=== PATIENT | female | born 1940 | race Caucasian/White ===

== ENCOUNTER 2019-08-04 16:55 | Inpatient (IN) ==
[2019-08-04] MEDS ORDERED: ACETAMINOPHEN 1,000 MG/100 ML VIAL IV STA (17:27)
[2019-08-04 17:51] LABS: Basophils # (auto) 0.04 K/uL (0-0.2); Basophils % (auto) 0.3 %; Eosinophils # (auto) 0.01 K/uL (0-0.5); Eosinophils % (auto) 0.1 %; Hematocrit (blood only) 31.8 % (37-47); Hemoglobin 10.3 g/dL (12.0-16.0); Immature Granulocytes # (auto) 0.03 K/uL (0.00-0.02); Immature Granulocytes % (auto) 0.3 %; Lymphocytes # (auto) 0.67 K/uL (1.2-3.4); Lymphocytes % (auto) 5.8 %; Mean Corpuscular Hemoglobin 28.9 pg (25-34); Mean Corpuscular Hgb Conc 32.4 g/dL (32-36); Mean Corpuscular Volume 89.3 fL (80-100); Mean Platelet Volume 10.7 fL (7.4-10.4); Monocytes # (auto) 0.25 K/uL (0.11-0.59); Monocytes % (auto) 2.2 %; Neutrophils # (auto) 10.56 K/uL (1.4-6.5); Neutrophils % (auto) 91.3 %; Platelet Count 212 K/uL (130-400); RDW Coefficient of Variation 17.3 % (11.5-14.5); RDW Standard Deviation 55.9 fL (36.4-46.3); Red Blood Count 3.56 M/uL (4.2-5.4); White Blood Count 11.56 K/uL (4.8-10.8)
[2019-08-04 18:01] LABS: INR 1.1 (0.9-1.1); Partial Thromboplastin Ratio 0.8; Partial Thromboplastin Time 23.1 Seconds (21.0-31.0); Prothrombin Time 11.9 Seconds (9.0-12.0)
[2019-08-04 18:04] LABS: iSTAT Creatinine 1.5 mg/dl (0.6-1.3); iSTAT Hemoglobin 10.9 g/dl (12.0-16.0); iSTAT Ionized Calcium 1.23 mmol/l (1.12-1.32); iSTAT Potassium 2.8 mmol/L (3.3-5.0)
[2019-08-04 18:09] LABS: Alanine Aminotransferase 13 U/L (12-78); Albumin Level 3.1 gm/dl (3.4-5.0); Aspartate Aminotransferase 24 U/L (15-37); BUN Creatinine Ratio 14.4 (10-20); Blood Urea Nitrogen 20 mg/dl (7-18); Calcium 9.1 mg/dl (8.5-10.1); Carbon Dioxide 24 mmol/L (21-32); Chloride 101 mmol/L (98-107); Est GFR (African American) 40.7; Est GFR (Non-African American) 35.1; Glucose 104 mg/dl (70-99); Lipase 177 U/L (73-393); Magnesium 1.8 mg/dl (1.8-2.4); Potassium 2.7 mmol/L (3.5-5.1); Sodium 139 mmol/L (136-145)
[2019-08-04 18:18] LABS: Albumin Globulin Ratio 0.9 (0.9-2); Alkaline Phosphatase 84 U/L (45-117); Creatine Kinase 242 U/L (26-192); Globulin 3.5 gm/dl (2.5-4.0); Phosphorus 2.4 mg/dl (2.5-4.9); Thyroid Stimulating Hormone 0.542 uIu/ml (0.300-4.500); Total Protein 6.6 gm/dl (6.4-8.2)
--- NOTE | 2019-08-04 18:26 | CT Scan Report ---
CT head/brain wo con CT DOSE: 930.81 mGy.cm HISTORY: Trauma Fall, pain, BUE/BLE ext weakness TECHNIQUE: Multiaxial CT images of the head were performed without the use of intravenous contrast. A dose lowering technique was utilized adhering to the principles of ALARA. Comparison: None. Findings: The paranasal sinuses and mastoid air cells are clear. The calvarium and skull base are int act. The ventricles and sulci are within normal limits. There is no mass, hematoma, midline shift, or acute infarct. Impression: No acute intracranial abnormality. ACT 112: Negative or not required by law. The above report was generated using voice recognition software. It may contain grammatical, syntax or spelling errors. Electronically signed by: Kenrick Colon M.D. 08/04/2019 6:24 PM
--- NOTE | 2019-08-04 18:28 | CT Scan Report ---
CT cervical spine wo con CT DOSE: HISTORY: Pain Fall, pain, BUE/BLE ext weakness TECHNIQUE: Multiaxial CT images of the cervical spine were performed and reformatted in the sagittal and coronal plane without the use of contrast. A dose lowering technique was utilized adhering to th e principles of ALARA. COMPARISON: None. FINDINGS: No fractures. No subluxation. Prevertebral soft tissues and the C1-C2 interval are intact. No pneumothorax. IMPRESSION: No fractures within the cervical spine. Generalized degenerative change. ACT 112: Negative or not required by law. The above report was generated using voice recognition software. It may contain grammatical, syntax or spelling errors. Electronically signed by: Kenrick Colon M.D. 08/04/2019 6:27 PM
--- NOTE | 2019-08-04 18:31 | CT Scan Report ---
CT chest wo con CT DOSE: 795.32 mGy.cm HISTORY: Trauma. Pain. Fall, pain, BUE/BLE ext weakness TECHNIQUE: Multiaxial CT images of the chest were performed without contrast. A dose lowering techni que was utilized adhering to the principles of ALARA. COMPARISON: None. FINDINGS: Prior median sternotomy. Mild cardiomegaly. Lungs are clear. No focal infiltrative process. Moderate degenerative change thoracic spine with no a cute process. IMPRESSION: No acute process. ACT 112: Negative or not required by law. The above report was generated using voice recognition software. It may contain grammatical, syntax or spelling errors. Electronically signed by: Kenrick Colon M.D. 08/04/2019 6:29 PM
[2019-08-04] MEDS: SODIUM CHLORIDE 0.9% 500 ML IV SCH (18:35)
--- NOTE | 2019-08-04 18:35 | CT Scan Report ---
CT abd pelvis wo con CT DOSE: HISTORY: Trauma Fall, pain, BUE/BLE ext weakness TECHNIQUE: Multiaxial CT images of the abdomen and pelvis were performed without contrast. A dose lo wering technique was utilized adhering to the principles of ALARA. COMPARISON STUDY: None. FINDINGS: Lung bases are clear. Liver spleen and pancreas are unremarkable. Kidneys are negative for hydronephrosis. There is moderate left renal atrophy. There is a 6 cm left r enal cyst. There is atherosclerotic change and ectasia of the abdominal aorta. The bowel pattern overall is nonobstructive. There is a small ventral hernia with evidence for a shor t segment of contain bowel. This is a nonobstructive finding. No acute bony abnormalities appreciated . IMPRESSION: No acute process. ACT 112: Negative or not required by law. The above report was generated using voice recognition software. It may contain grammatical, syntax or spelling errors. Electronically signed by: Kenrick Colon M.D. 08/04/2019 6:34 PM
[2019-08-04] MEDS ORDERED: DIPHTHERIA/TETANUS/PERTUSSIS 0.5 ML SYR/VIAL IM ONE (19:38)
[2019-08-04] MEDS ORDERED: POT PHOSPHATE MONOBASIC W/ SOD TAB PO STA (19:38)
[2019-08-04] MEDS ORDERED: POTASSIUM CHLORIDE 20 MEQ TABCR PO STA (19:38)
[2019-08-04] MEDS ORDERED: XYLOCAINE 1%/SOD BICARB 20 ML VIAL INFIL ONE (19:38)
[2019-08-04 19:40] LABS: Appearance Urine Cloudy (Clear); Bacteria Urine Automated 4+ (Negative); Blood Urine 1+ (Negative); Color Urine Dark Yellow; Epithelial Cell Urine Auto >30 /lpf (0-5); Glucose Urine UA Negative (Negative); Ketones Urine 1+ (Negative); Leukocyte Esterase Urine Trace (Negative); Nitrite Urine Negative (Negative); Protein Urine 2+ (Negative); RBC Urine Automated 0-4 /hpf (0-4); Specific Gravity Urine 1.022 (1.000-1.030); Urobilinogen Urine Negative (Negative)
[2019-08-04 19:42] LABS: Bilirubin Urine Negative (Negative); Ictotest Urine Negative (Negative)
--- NOTE | 2019-08-04 19:45 | Emergency Department Note ---
Impression & Plan Urinary tract infection, Hypokalemia, Hypomagnesemia, Hypophosphatemia, Generalized muscle weakness, Laceration of nose, Unwitnessed fall, Adult failure to thrive ED Provider Note NAME: NANETTE OBANDO AGE: 79 SEX: F ARRIVES VIA: Ambulance INFORMANT: Patient, ED PROVIDER(S): Blayne Norman MD CHIEF COMPLAINT: Fall, weakness PLAN: Disposition: Admit MEDICAL DECISION MAKING: The patient is a pleasant 79-year-old woman with a past medical history of CKD, aortic regurgitation who presents emergency department after an unwitnessed fall in her home setting of being seen at located in emergency department yesterday for decreased appetite and oral intake with progressive worsening confusion over the past 6 months. Per patient's daughter she was diagnosed with low potassium at her ED visit a [facility] yesterday and was discharged after receiving repletion. The patient's daughter the patient has had progressive confusion o miri the past 6 months becoming more significant over the past several weeks where she is refusing to eat. Additionally she has not followed up with her primary care doctor and is not taking her medications as prescribed. She reports that her mother lives by herself in an apartment complex and does not receive any nursing or personal care. On arrival the patient is uncomfortable no acute distress, afebrile stable vital signs. The patient exhibits generalized weakness of all 4 extremities, 3/6 strength x4 extremities. She does have a 2.6 cm linear laceration to the bridge of her nose. She has mild tenderness of the midline over lower C-spine bony crepitus. She has no focal neuro deficits. EKG demonstrates nonspecific T wave abnormality without overt ST elevation. CT imaging of the patient's head, C-spine, chest, abdomen pelvis were negative for acute traumatic findings or acute process otherwise. WBC 11.5, nonspecific. H/H 10.3/31.8 without recent values for comparison but sim ilar to prior range of values. Platelets within normal limits. Chemistry without metabolic acidosis. Creatinine 1.4 in setting of the patient's history of CKD. Potassium is 2.7 and magnesium is 1.8 with repletion provided. Phosphorus 2.4 with additional repletion provided. LFTs unremarkable. CPK 240. Troponin 0.03, within normal limits. TSH within normal limits. UA pending. Laceration repaired per Dr. Kinsey's procedure note. the patient's generalized weakness where she is unable to ambulate, which is suspected to be related to her potassium deficiency and dehydration with overall failure to thrive, reasonable to admit the patient for further management. Patient is agreeable wi th this. Patient's presentation evaluation was discussed with the patient's daughter, Alexandra Bullard ([phone]), who was also agreeable with the plan for admission. [facility] for [facility]. Of note, the patient's UA subsequently did result and is suspicious for UTI. Will initiate treatment with ceftriaxone. Triage Nursing notes reviewed and agree them. Additional history obtained from daughter, Alexandra Bullard ([phone]) Prior medical records reviewed Vital Signs: reviewed and remarkable for hypertension. Differential diagnosis: Fracture, dislocation, contusion, intra-abdominal, pneumothorax, intrathoracic, intracranial, neurologic, compartment syndrome, rhabdomyolysis, as well as other pathologies. ER treatment provided: See below. Diagnostics interpreted by me: ECG: Sinus rhythm, 73 bpm, LVH, significant baseline artifact present. Nonspecific T wave abnormality, no overt ST elevation, TC 449, QRS 76. Cardiac Monitoring: An order for continuous cardiac monitoring was placed and demonstrated on his rhythm, 73 bpm, no ectopy. Laboratory studies: See below Imaging studies: See below Consultation(s): [facility] the patient for admission. HPI: The patient is a pleasant 79-year-old woman with a past medical history of CKD, aortic regurgitation who presents emergency department after an unwitnessed fall in her home setting of being seen at located in emergency department yesterday for decreased appetite and oral intake with progressive worsening confusion over the past 6 months. Per patient's daughter she was diagnosed with low potassium at her ED visit a [facility] yesterday and was discharged after receiving repletion. The patient's daughter the patient has had progressive confusion over the past 6 months becoming more significant over the past several weeks where she is refusing to eat. Additionally she has not followed up with her primary care doctor and is not taking her medications as prescribed. She reports that her mother lives by herself in an apartment complex and does not receive any nursing or personal care. ROS: See above HPI for pertinent positives & negatives. A total of 10 systems reviewed and were otherwise negative. PAST MEDICAL HISTORY:See Below PAST SURGICAL HISTORY:See Below FAMILY HISTORY:See Below SOCIAL HISTORY:See Below HOME MEDICATIONS:See Below ALLERGIES:See Below VITALS:See Below PHYSICAL EXAMINATION: GENERAL: Awake, alert, fatigued-appearing, in no distress HENT: Normocephalic. 2.6cm linear laceration to bridge of nose. Mild left infraorbital ecchymosis. Oropharynx with dry mucous membranes and otherwise unremarkable. EYES: Normal conjunctiva. Sclera non-icteric. EOMI. No nystamgus. PEARRL. NECK: Supple. No nuchal rigidity. FROM. No JVD. Mild lower cervical midline tenderness without irasema crepitus. RESPIRATORY: Clear to auscultation. CARDIAC: Regular rate, normal rhythm. Extremities warm and well perfused. Pulses equal. ABDOMEN: Soft, non-distended. No tenderness to palpation. No rebound or guarding. No masses. RECTAL: Deferred. MUSCULOSKELETAL: Chest examination reveals no tenderness. The back is symmetrical on inspection without obvious abnormality. No TL spine midline tenderness or step-offs. There is no CVA tenderness to palpation. No joint edema. LOWER EXTREMITIES: Calves are equal size bilaterally and non-tender. No edema. No discoloration. NEURO: Normal sensorium. No focal sensory or motor deficits noted. However, generalized extremities weakness with 3/6 strength and SILT x 4 extremities. DTRs wnl. No clonus. SKIN: No rash or jaundice noted. Blayne Norman MD Past Med/Surg History Medical History CKD (chronic kidney disease) Hyperlipidemia Hypertension Social History Preferred Language: Estonian Communication Ability: Effective Career Education Teacher Required: No Beliefs That Will Affect Care: None Current Living Situation: Alone Other Information That Helps Us Care for You: No Feels Safe at Home: Yes Safety Concerns: Feels Safe At This Time Smoking Status: Former smoker Smoking End Date: "couple years ago" ; Hx Alcohol Use: No Hx Substance Use: No Allergies Allergies Allergy/AdvReac Type Severity Reaction Status Date / Time No Known Allergies Allergy Unknown Verified 08/04/19 20:09 Home Meds Home Medications Medication Instructions Recorded Confirmed amlodipine 2.5 mg PO DAILY 08/04/19 08/04/19 aspirin [Aspirin Low Dose] 81 mg PO DAILY 08/04/19 08/04/19 atorvastatin 40 mg PO DAILY 08/04/19 08/04/19 calcitriol 0.25 mcg PO 3XWK 08/04/19 08/04/19 cholecalciferol (vitamin D3) 25 mcg PO DAILY 08/04/19 08/04/19 Results & Data (ED) Vital Signs Vital Signs - 24 hr 08/04/19 17:05 08/04/19 17:25 08/04/19 17:30 Temperature 36.7 C Temperature Source Oral Pulse Rate 77 79 Pulse Rate from SpO2 Sensor Respiratory Rate 20 20 Blood Pressure 154/85 H Blood Pressure Mean 108 Pulse Oximetry 98 Oxygen Delivery Method Room Air Room Air Sepsis Recent Fever Within 48 Hours No Sepsis New/Unexplained Change in Mental Status No Sepsis Action Taken by Nursing No Action Required 08/04/19 18:00 08/04/19 18:32 08/04/19 19:00 Temperature Temperature Source Pulse Rate 74 68 73 Pulse Rate from SpO2 Sensor 75 69 72 Respiratory Rate 15 21 15 Blood Pressure 165/80 H 170/80 H Blood Pressure Mean 119 122 Pulse Oximetry 98 98 98 Oxygen Delivery Method Room Air Room Air Sepsis Recent Fever Within 48 Hours Sepsis New/Unexplained Change in Mental Status Sepsis Action Taken by Nursing 08/04/19 20:00 08/04/19 20:30 08/04/19 21:00 Temperature Temperature Source Pulse Rate 75 78 76 Pulse Rate from SpO2 Sensor 75 77 76 Respiratory Rate 24 26 H 23 Blood Pressure 190/90 H 177/82 H 173/73 H Blood Pressure Mean 158 88 89 Pulse Oximetry 98 98 99 Oxygen Delivery Method Room Air Room Air Sepsis Recent Fever Within 48 Hours Sepsis New/Unexplained Change in Mental Status Sepsis Action Taken by Nursing 08/04/19 21:30 Temperature Temperature Source Pulse Rate 76 Pulse Rate from SpO2 Sensor 77 Respiratory Rate 26 H Blood Pressure 175/83 H Blood Pressure Mean 126 Pulse Oximetry 92 Oxygen Delivery Method Room Air Sepsis Recent Fever Within 48 Hours Sepsis New/Unexplained Change in Mental Status Sepsis Action Taken by Nursing Laboratory Data Attestation: I reviewed the patient's lab results. Result diagrams: 08/04/19 17:40 08/04/19 17:40 Lab Results 08/04/19 08/04/19 08/04/19 Range/Units 17:40 17:40 17:40 WBC 11.56 H (4.8-10.8) K/uL RBC 3.56 L (4.2-5.4) M/uL Hgb 10.3 L (12.0-16.0) g/dL POC Hgb (12.0-16.0) g/dl Hct 31.8 L (37-47) % POC Hct (37-47) % MCV 89.3 (80-100) fL MCH 28.9 (25-34) pg MCHC 32.4 (32-36) g/dL RDW Std Deviation 55.9 H (36.4-46.3) fL RDW Coeff of Santiago 17.3 H (11.5-14.5) % Plt Count 212 (130-400) K/uL MPV 10.7 H (7.4-10.4) fL Immature Gran % (Auto) 0.3 % Neut % (Auto) 91.3 % Lymph % (Auto) 5.8 % [place] % (Auto) 2.2 % Eos % (Auto) 0.1 % Baso % (Auto) 0.3 % Immature Gran # (Auto) 0.03 H (0.00-0.02) K/uL Neut # (Auto) 10.56 H (1.4-6.5) K/uL Lymph # (Auto) 0.67 L (1.2-3.4) K/uL [place] # (Auto) 0.25 (0.11-0.59) K/uL Eos # (Auto) 0.01 (0-0.5) K/uL Baso # (Auto) 0.04 (0-0.2) K/uL PT 11.9 (9.0-12.0) Seconds INR 1.1 (0.9-1.1) APTT 23.1 (21.0-31.0) Seconds PTT Ratio 0.8 POC Sodium (135-144) mmol/L Sodium 139 (136-145) mmol/L POC Potassium (3.3-5.0) mmol/L Potassium 2.7 L (3.5-5.1) mmol/L POC Chloride (101-112) mmol/L Chloride 101 (98-107) mmol/L Carbon Dioxide 24 (21-32) mmol/L POC Total CO2 (24-31) mEq/l Anion Gap 14.0 H (3-11) POC Anion Gap (16-25) mmol/L POC BUN (7-18) mg/dl BUN 20 H (7-18) mg/dl Creatinine 1.40 H (0.6-1.2) mg/dl POC Creatinine (0.6-1.3) mg/dl Est Cr Clr Drug Dosing Not Reportable Est GFR ( Amer) 40.7 Est GFR (Non-Af Amer) 35.1 BUN/Creatinine Ratio 14.4 (10-20) Glucose 104 H (70-99) mg/dl POC Glucose (other) (70-99) mg/dl Lactate (0.4-2.0) mmol/L Calcium 9.1 (8.5-10.1) mg/dl POC Ioniz Calcium Rebecca (1.12-1.32) mmol/l Phosphorus 2.4 L (2.5-4.9) mg/dl Magnesium 1.8 (1.8-2.4) mg/dl Total Bilirubin 1.0 (0.2-1) mg/dl AST 24 (15-37) U/L ALT 13 (12-78) U/L Alkaline Phosphatase 84 (45-117) U/L Total Creatine Kinase 242 H (26-192) U/L Troponin I 0.030 (0-0.045) ng/ml Total Protein 6.6 (6.4-8.2) gm/dl Albumin 3.1 L (3.4-5.0) gm/dl Globulin 3.5 (2.5-4.0) gm/dl Albumin/Globulin Ratio 0.9 (0.9-2) Lipase 177 (73-393) U/L TSH 0.542 (0.300-4.500) uIu/ml Urine Color Urine Appearance (Clear) Urine pH (4.5-7.5) Ur Specific Pimento (1.000-1.030) Urine Protein (Negative) Urine Glucose (UA) (Negative) Urine Ketones (Negative) Urine Blood (Negative) Urine Nitrite (Negative) Urine Bilirubin (Negative) Urine Urobilinogen (Negative) Ur Leukocyte Esterase (Negative) Urine WBC (Auto) (0-5) /hpf Urine RBC (Auto) (0-4) /hpf U Hyaline Cast (Auto) (0-5) /lpf U Epithel Cells (Auto) (0-5) /lpf Urine Bacteria (Auto) (Negative) Ur Renal Epithelial Cell 08/04/19 08/04/19 08/04/19 Range/Units 17:46 19:26 21:02 WBC (4.8-10.8) K/uL RBC (4.2-5.4) M/uL Hgb (12.0-16.0) g/dL POC Hgb 10.9 L (12.0-16.0) g/dl Hct (37-47) % POC Hct 32 L (37-47) % MCV (80-100) fL MCH (25-34) pg MCHC (32-36) g/dL RDW Std Deviation (36.4-46.3) fL RDW Coeff of Santiago (11.5-14.5) % Plt Count (130-400) K/uL MPV (7.4-10.4) fL Immature Gran % (Auto) % Neut % (Auto) % Lymph % (Auto) % [place] % (Auto) % Eos % (Auto) % Baso % (Auto) % Immature Gran # (Auto) (0.00-0.02) K/uL Neut # (Auto) (1.4-6.5) K/uL Lymph # (Auto) (1.2-3.4) K/uL [place] # (Auto) (0.11-0.59) K/uL Eos # (Auto) (0-0.5) K/uL Baso # (Auto) (0-0.2) K/uL PT (9.0-12.0) Seconds INR (0.9-1.1) APTT (21.0-31.0) Seconds PTT Ratio POC Sodium 137 (135-144) mmol/L Sodium (136-145) mmol/L POC Potassium 2.8 L (3.3-5.0) mmol/L Potassium (3.5-5.1) mmol/L POC Chloride 98 L (101-112) mmol/L Chloride (98-107) mmol/L Carbon Dioxide (21-32) mmol/L POC Total CO2 25 (24-31) mEq/l Anion Gap (3-11) POC Anion Gap 18.0 (16-25) mmol/L POC BUN 19 H (7-18) mg/dl BUN (7-18) mg/dl Creatinine (0.6-1.2) mg/dl POC Creatinine 1.5 H (0.6-1.3) mg/dl Est Cr Clr Drug Dosing Est GFR ( Amer) Est GFR (Non-Af Amer) BUN/Creatinine Ratio (10-20) Glucose (70-99) mg/dl POC Glucose (other) 110 H (70-99) mg/dl Lactate 1.0 (0.4-2.0) mmol/L Calcium (8.5-10.1) mg/dl POC Ioniz Calcium Rebecca 1.23 (1.12-1.32) mmol/l Phosphorus (2.5-4.9) mg/dl Magnesium (1.8-2.4) mg/dl Total Bilirubin (0.2-1) mg/dl AST (15-37) U/L ALT (12-78) U/L Alkaline Phosphatase (45-117) U/L Total Creatine Kinase (26-192) U/L Troponin I (0-0.045) ng/ml Total Protein (6.4-8.2) gm/dl Albumin (3.4-5.0) gm/dl Globulin (2.5-4.0) gm/dl Albumin/Globulin Ratio (0.9-2) Lipase (73-393) U/L TSH (0.300-4.500) uIu/ml Urine Color Dark Yellow Urine Appearance Cloudy A (Clear) Urine pH 5.0 (4.5-7.5) Ur Specific Pimento 1.022 (1.000-1.030) Urine Protein 2+ H (Negative) Urine Glucose (UA) Negative (Negative) Urine Ketones 1+ H (Negative) Urine Blood 1+ H (Negative) Urine Nitrite Negative (Negative) Urine Bilirubin Negative (Negative) Urine Urobilinogen Negative (Negative) Ur Leukocyte Esterase Trace H (Negative) Urine WBC (Auto) 10-30 H (0-5) /hpf Urine RBC (Auto) 0-4 (0-4) /hpf U Hyaline Cast (Auto) 10-30 H (0-5) /lpf U Epithel Cells (Auto) >30 H (0-5) /lpf Urine Bacteria (Auto) 4+ H (Negative) Ur Renal Epithelial Cell Not Reportable Administered Medications Sodium Chloride (Nss 1000ml) 1,000 mls @ 80 mls/hr IV .[id number] [facility] Stop: 09/03/19 22:56 Last Admin: 08/04/19 23:39 Dose: 80 mls/hr Documented by: [id number] Potassium Phosphate 15 mmol/ (Sodium Chloride) 255 mls @ 88 mls/hr IV ONE ONE Stop: 08/05/19 02:23 Last Admin: 08/05/19 00:06 Dose: 88 mls/hr Documented by: [id number] Discontinued Medications Diphtheria/Pertussis/Tetanus Vacc (Adacel) 0.5 ml IM .ONCE ONE Stop: 08/04/19 19:39 Last Admin: 08/04/19 20:45 Dose: 0.5 ml Documented by: [id number] Acetaminophen (Ofirmev) 1,000 mg in 100 mls @ 400 mls/hr IV NOW STA Stop: 08/04/19 17:41 Last Admin: 08/04/19 18:36 Dose: Not Given Documented by: [id number] Sodium Chloride (Nss) 500 mls @ 125 mls/hr IV .Q4H [facility] Stop: 09/03/19 17:29 Last Admin: 08/04/19 18:35 Dose: 125 mls/hr Documented by: [id number] Potassium Chloride (K Luis / Wtr) 10 meq in 100 mls @ 100 mls/hr IV Q1H [facility] Stop: 08/04/19 21:44 Last Infusion: 08/04/19 22:38 Dose: 0 mls/hr Documented by: [id number] Admin: 08/04/19 21:42 Dose: 100 mls/hr Documented by: [id number] Infusion: 08/04/19 21:32 Dose: 100 mls/hr Documented by: [id number] Admin: 08/04/19 20:32 Dose: 100 mls/hr Documented by: [id number] Magnesium Sulfate/Dextrose (Magnesium Sulfate / D5w) 1 gm in 100 mls @ 100 mls/hr IV Q1H PATRICA Stop: 08/04/19 21:44 Last Infusion: 08/05/19 00:47 Dose: 0 mls/hr Documented by: [id number] Admin: 08/04/19 23:33 Dose: 100 mls/hr Documented by: [id number] Infusion: 08/04/19 23:26 Dose: 100 mls/hr Documented by: [id number] Admin: 08/04/19 22:26 Dose: 100 mls/hr Documented by: [id number] Ceftriaxone Sodium (Rocephin) 2,000 mg in 70 mls @ 140 mls/hr IV NOW STA Stop: 08/04/19 21:09 Last Infusion: 08/04/19 22:20 Dose: 0 mls/hr Documented by: [id number] Admin: 08/04/19 21:42 Dose: 140 mls/hr Documented by: [id number] Lidocaine HCl (Buffered Lidocaine 1%) 20 ml INFIL NOW ONE Stop: 08/04/19 19:39 Last Admin: 08/04/19 20:31 Dose: 20 ml Documented by: [id number] Potassium Chloride (Klor-Con M20) 40 meq PO NOW STA Stop: 08/04/19 19:39 Last Admin: 08/04/19 20:44 Dose: Not Given Documented by: [id number] Potassium Chloride (Klor-Con Pwd) 40 meq PO NOW STA Stop: 08/04/19 20:12 Last Admin: 08/04/19 20:42 Dose: Not Given Documented by: [id number] Potassium Phosphate (Phospha 250 Neutral 155-852-130 Mg) 2 tab PO NOW STA Stop: 08/04/19 19:39 Last Admin: 08/04/19 20:45 Dose: Not Given Documented by: [id number] Imaging Data Radiologist's Impression: CT head/brain wo con CT DOSE: 930.81 mGy.cm HISTORY: Trauma Fall, pain, BUE/BLE ext weakness TECHNIQUE: Multiaxial CT images of the head were performed without the use of intravenous contrast. A dose lowering technique was utilized adhering to the principles of ALARA. Comparison: None. Findings: The paranasal sinuses and mastoid air cells are clear. The calvarium and skull base are intact. The ventricles and sulci are within normal limits. There is no mass, hematoma, midline shift, or acute infarct. Impression: No acute intracranial abnormality. -- CT cervical spine wo con CT DOSE: HISTORY: Pain Fall, pain, BUE/BLE ext weakness TECHNIQUE: Multiaxial CT images of the cervical spine were performed and reformatted in the sagittal and coronal plane without the use of contrast. A dose lowering technique was utilized adhering to the principles of ALARA. COMPARISON: None. FINDINGS: No fractures. No subluxation. Prevertebral soft tissues and the C1-C2 interval are intact. No pneumothorax. IMPRESSION: No fractures within the cervical spine. Generalized degenerative change. -- CT chest wo con CT DOSE: 795.32 mGy.cm HISTORY: Trauma. Pain. Fall, pain, BUE/BLE ext weakness TECHNIQUE: Multiaxial CT images of the chest were performed without contrast. A dose lowering technique was utilized adhering to the principles of ALARA. COMPARISON: None. FINDINGS: Prior median sternotomy. Mild cardiomegaly. Lungs are clear. No focal infiltrative process. Moderate degenerative change thoracic spine with no acute process. IMPRESSION: No acute process. -- CT abd pelvis wo con CT DOSE: HISTORY: Trauma Fall, pain, BUE/BLE ext weakness TECHNIQUE: Multiaxial CT images of the abdomen and pelvis were performed without contrast. A dose lowering technique was utilized adhering to the principles of ALARA. COMPARISON STUDY: None. FINDINGS: Lung bases are clear. Liver spleen and pancreas are unremarkable. Kidneys are negative for hydronephrosis. There is moderate left renal atrophy. There is a 6 cm left renal cyst. There is atherosclerotic change and ectasia of the abdominal aorta. The bowel pattern overall is nonobstructive. There is a small ventral hernia with evidence for a short segment of contain bowel. This is a nonobstructive fi nding. No acute bony abnormalities appreciated. IMPRESSION: No acute process. Blood Pressure Blood Pressure Findings: Elevated blood pressure Blood Pressure Disposition: further management by hospitalist Discharge Plan Visit Data *Final* Discharge Date/Time: 08/04/19 22:37 Chief Complaint: Fall Stated Complaint: FALL, R HIP & LEG PAIN, LAC TO NOSE ED Provider: Blayne Norman Discharge Problem: Urinary tract infection, Hypokalemia, Hypomagnesemia, Hypophosphatemia, Generalized muscle weakness, Laceration of nose, Unwitnessed fall, Adult failure to thrive Patient Disposition: Admitted As Inpatient Discharge Instructions Interventions: ED Discharge Assessment Last Done: 08/04/19 22:37 Discharge Problem: Urinary tract infection Qualifiers: Urinary tract infection type: acute cystitis Hematuria presence: with hematuria Qualified Code(s): N30.01 - Acute cystitis with hematuria Laceration of nose Qualifiers: Encounter type: initial encounter Qualified Code(s): S01.21XA - Laceration without foreign body of nose, initial encounter
[2019-08-04] MEDS ORDERED: POTASSIUM CHLORIDE PWD 20 MEQ PACK PO STA (20:11)
--- NOTE | 2019-08-04 20:31 | Emergency Department Note ---
ED Visit Note I performed this laceration repair: Location: bridge of nose Total length: 2.6 cm Complexity: linear Verbal consent was obtained after the risks and benefits were explained, including but not limited to bleeding, scarring, infection, pain, and bone/joint/nerve damage. At this time, the risks of the procedure are less than the risks of NOT performing the procedure. A time out was taken and the correct patient and site identified. The target area was anesthetized with 2 ml of 1% lidocaine. Copious irrigation was performed using 500cc NS. Sterile field set. The wound was explored for foreign bodies and none found. Examination revealed no injury to deep structures such as tendons, bone, or significant blood vessels. Debridement was not performed. The wound edges were approximated using 3, 5-0 simple interrupted nylon sutures. Hemostasis and excellent approximation was achieved. Antibacterial ointment and a sterile dressing applied. Detailed wound care instructions and signs and symptoms of infection reviewed with the patient. No complications and the patient tolerated the procedure well. .
[2019-08-04] MEDS: POTASSIUM CHLORIDE / WTR 10 MEQ/100 ML PLCT IV SCH ×2 (20:32→21:42)
[2019-08-04] MEDS ORDERED: cefTRIAXone SODIUM 2,000 MG/70 ML BAG IV STA (20:40)
[2019-08-04] MEDS: MAGNESIUM SULFATE / D5W 1 GM/100 ML BAG IV SCH ×2 (22:26→23:33)
[2019-08-04] MEDS ORDERED: ACETAMINOPHEN 325 MG TAB PO PRN (22:57)
[2019-08-04] MEDS ORDERED: NITROGLYCERIN SL 0.4 MG/TAB TAB SL PRN (22:57)
[2019-08-04] MEDS ORDERED: SODIUM CHLORIDE 0.9% 1000ML 1,000 ML IV SCH (22:57)
[2019-08-04] MEDS ORDERED: POTASSIUM PHOS 3 MMOL/1 ML INFUSION IV STA (22:57)
[2019-08-04] MEDS ORDERED: POTASSIUM PHOSPHATE 15 MMOL in SODIUM CHLORIDE 0.9% 250 ML IV ONE (23:30)
--- NOTE | 2019-08-05 01:37 | History and Physical Report ---
DATE OF ADMISSION: 08/04/2019 CHIEF COMPLAINT: Fall. HISTORY OF PRESENT ILLNESS: This is an 79-year-old female with past medical history significant for hyperlipidemia, hypertension, history of mitral regurgitation, CAD status post CABG, history of diverticulitis of colon, GERD, vitamin D deficiency, chronic kidney disease stage IV, history of TIAs, who lives alone, walks with a cane was brought in because of fall. The patient lives alone but daughter lives close by. The patient was taken to [facility] yesterday because the patient was not getting up from the bed for the last 4 days, not eating and drinking much, feeling weak, somewhat confused. As per daughter, the potassium was 3 and she was in ER for 3 hours and got discharged. Today, the patient says when she was trying to get up from the bed and going to the dining room, she slipped on the carpet and fell face down. She then passed out. Then she was able to call her daughter and she was brought in here. She was having Bruise to Left orbit and injury of the bridge of the nose, which was sutured in the ER. Currently alert and awake, oriented to name and place, does not know the dates. Denies any headache. Denies any blurred visions, no earache. Denies any sore throat. Denies cough. No fever, no chills. No chest pain, no shortness of breath. Denies any nausea, no vomiting, no abdominal pain. Denies any diarrhea or constipation. Normal bowel and bladder movements. No rash anywhere. Hemodynamics are stable. ALLERGIES: No known drug allergies. PAST MEDICAL HISTORY: As mentioned above. PAST SURGICAL HISTORY: CABG, colonoscopy, dilatation and curettage, exploratory laparotomy and removal of infected mesh with incisional hernia repair, sigmoid colectomy, appendectomy, tonsillectomy, adenoidectomy, repair of the ventral hernia, total hysterectomy. MEDICATIONS: The patient is on Lipitor 40 mg p.o. daily; calcitriol 0.25 mcg p.o. Sunday, Sunday, and Sunday; amlodipine 2.5 mg p.o. daily; vitamin D 1000 units p.o. daily; aspirin 81 mg p.o. daily. FAMILY HISTORY: Significant for mother has arthritis and eye problems; father had stroke and hypertension; brother has cholesterol. SOCIAL HISTORY: , lives alone. Former smoker, quit in 2010, prior to that smoked 0.25 packs a day. No alcohol use, no drug use. REVIEW OF SYSTEMS: As per HPI. Rest of review of systems negative. PHYSICAL EXAMINATION: GENERAL: The patient is old and frail, not in acute distress. VITAL SIGNS: Temperature 36.7, pulse 68, respiratory rate 21, blood pressure 165/80, oxygen 98% on room air. HEENT: Some bruise on the left orbit region, sutures in the nasal bridge. Pupils equal, round, reactive to light. NECK: Supple, no neck masses. CARDIOVASCULAR: S1, S2 heard, regular rate and rhythm. Systolic murmur in mitral area. RESPIRATORY SYSTEM: Normal AP diameter. No accessory muscle use. No wheezing, no crackles. ABDOMEN: Soft, bowel sounds present, nontender. No distention. CENTRAL NERVOUS SYSTEM: Cranial nerves II-XII grossly intact. Alert and oriented x2. Obeys simple commands. Moves extremities. EXTREMITIES: No edema, no erythema. LABORATORY DATA: WBC 11.5, hemoglobin 10.3, hematocrit 31.8, and platelets 212. PT 11.9, INR 1.1, APTT 23.1. Sodium 139, potassium 2.7, chloride 101, CO2 of 24, BUN 20, creatinine 1.4, serum glucose 104. Lactate 1, calcium 9.1, phosphorus 2.4, magnesium 1.8, total bilirubin 1, AST 24, ALT 13, alkaline phosphatase 84. Troponin I of 0.03. Lipase 177. TSH 0.5. Urinalysis, trace leukocyte esterase, +4 bacteria. IMAGING DATA: CT of the abdomen and pelvis, no acute process. Cervical spine CT, no fractures within the cervical spine, generalized degenerative change. Chest CT, no acute process. CT of the head, no acute intracranial abnormality. EKG: Normal sinus rhythm with a rate of 73. Nonspecific T-wave abnormality in the lateral leads. ASSESSMENT AND PLAN: This is an 79-year-old female who presents with fall. 1. Fall which seems to be mechanical, fell on his face. The patient lost consciousness for a period of time and has an injury to her nasal bridge and bruise in the left orbital region. Sutured the nasal bridge in the ER. As per daughter, the patient was not getting up from bed for the last 4 days and was somewhat confused, not eating, drinking. Went to the [facility] and found to have potassium of 3 and got discharged. Her potassium is 2.7 today could be contributing to fall.. We will also check orthostatics and possible urinary tract infection contributing. We will observe in med/surg tele. Gentle fluids. PT and OT. Social service to help with discharge planning. 2. Hypokalemia. We will replace. 3. Hypophosphatemia, replace and follow the repeat labs. 4. Possible urinary tract infection, Rocephin. Follow the cultures. 5. Chronic kidney disease stage IV. Baseline creatinine around 2, currently creatinine of 1.4. Getting fluids. Follow the labs. 6. History of coronary artery disease status post coronary artery bypass graft, on aspirin and statin. 7. Hypertension, on amlodipine. 8. History of mitral regurgitation. Monitor for any volume overload. 9. Hyperlipidemia, on statin. 10. History of transient ischemic attacks, on aspirin and statin. 11. Deep vein thrombosis prophylaxis, sequential compression devices. DISPOSITION: Observe in med/surg tele. PT and OT prior to discharge. Social service to help with discharge planning. Code status: Full code as per my discussion with the daughter. STEPHEN
[2019-08-05 06:34] LABS: Basophils # (auto) 0.03 K/uL (0-0.2); Basophils % (auto) 0.3 %; Eosinophils # (auto) 0.02 K/uL (0-0.5); Eosinophils % (auto) 0.2 %; Hematocrit (blood only) 31.4 % (37-47); Hemoglobin 10.1 g/dL (12.0-16.0); Immature Granulocytes # (auto) 0.02 K/uL (0.00-0.02); Immature Granulocytes % (auto) 0.2 %; Lymphocytes # (auto) 0.86 K/uL (1.2-3.4); Lymphocytes % (auto) 9.8 %; Mean Corpuscular Hemoglobin 28.5 pg (25-34); Mean Corpuscular Hgb Conc 32.2 g/dL (32-36); Mean Corpuscular Volume 88.5 fL (80-100); Mean Platelet Volume 10.5 fL (7.4-10.4); Monocytes # (auto) 0.33 K/uL (0.11-0.59); Monocytes % (auto) 3.7 %; Neutrophils # (auto) 7.56 K/uL (1.4-6.5); Neutrophils % (auto) 85.8 %; Platelet Count 180 K/uL (130-400); RDW Coefficient of Variation 17.3 % (11.5-14.5); RDW Standard Deviation 55.1 fL (36.4-46.3); Red Blood Count 3.55 M/uL (4.2-5.4); White Blood Count 8.82 K/uL (4.8-10.8)
[2019-08-05] MEDS: ONDANSETRON INJ 2 MG/ML 2 ML VIAL IV PRN ×2 (06:37→23:41)
[2019-08-05 07:08] LABS: BUN Creatinine Ratio 16.6 (10-20); Calcium 8.7 mg/dl (8.5-10.1); Creatinine Clr Calc Pharmacy 27.3 ml/min; Est GFR (African American) 48.1; Est GFR (Non-African American) 41.5; Magnesium 2.6 mg/dl (1.8-2.4); Phosphorus 3.3 mg/dl (2.5-4.9); Potassium 3.2 mmol/L (3.5-5.1)
--- NOTE | 2019-08-05 08:20 | Electrocardiogram Report ---
Test Reason : Blood Pressure : / mmHG Vent. Rate : 073 BPM Atrial Rate : 073 BPM P-R Int : 142 ms QRS Dur : 076 ms QT Int : 408 ms P-R-T Axes : 000 -13 060 degrees QTc Int : 449 ms Poor data quality, interpretation may be adversely affected Normal sinus rhythm Voltage criteria for left ventricular hypertrophy Abnormal ECG When compared with ECG of 10-MAR-2011 06:41, Premature ventricular complexes are no longer Present Otherwise no significant change Confirmed by Mina Contreras ([id number]) on 08/05/2019 8:20:24 AM Referred By: REFERRED SELF Confirmed By:Mina Contreras
[2019-08-05] MEDS ORDERED: AMLODIPINE BESYLATE 5 MG TAB PO SCH (09:00)
[2019-08-05] MEDS ORDERED: ATORVASTATIN 40 MG TAB PO SCH (09:00)
[2019-08-05] MEDS ORDERED: ASPIRIN 81 MG ECTAB PO SCH (09:00)
[2019-08-05] MEDS ORDERED: CHOLECALCIFEROL 1,000 UNITS 25 MCG TAB PO SCH (09:00)
--- NOTE | 2019-08-05 10:27 | Hospitalist Progress Note ---
Date of Service August 05, 2019 Assessment & Plan (1) Fall: Ambulatory Dysfunction Motor Deficits of the hands This is an 79-year-old female who presents with fall. -fell on her face with loss of consciousness. The patient lost consciousness for a period of time and has an injury to her nasal bridge and bruise in the left orbital region. ER provider sutured the nasal bridge in the ER. -08/05/2019 updates: Patient seen and examined at bedside this AM with nurse and occupational therapist. Patient on commode and made a bowel movement. Stool is loose and somewhat dark brown in color. Medical doctor asked for stool to be sent fo fecal occult blood test. Patient apparently has difficulty with using her hands to hold onto cup with either hand. She appears to not really move her fingers on both hands from a flexed position and therefor not gripping the cup. Occupational therapist considers this unusual because at baseline that patient reported to be able to hold objects at baseline such as walking with cane as per her daughter Aleah ([phone]) by telephone prior to this hospital presentation. In addition, patient needed 2 person assist to return to the bed. When she is positioned upright on bed without back supports, she appears to sway. Patient was assisted to be on the bedrest. Nurse also requesting formal speech and swallow evaluation for patient. oral hygiene q shift, continue aspiration precautions. At this time, because of hand issues will further workup the neck MRI to rule out cervical cord compression. In addition to obtain brain MRI to rule out head injury but admission head CT without contrast did not find evidence for stroke. keep NPO until speech and swallow evaluation completed. Nutrition/Hydration as D5 1/2 normal. will have neurology consult to assist with evaluating abnormal hand movements. will have orthopedic consult to help with ruling out cervical radiculopathy or cervical cord compression History of coronary artery disease status post coronary artery bypass graft History of mitral regurgitation Hyperlipidemia History of transient ischemic attacks -no acute stroke on admission CT head without contrast -can continue aspirin and statin when not NPO, awaiting speech and swallow service -follow MRI results Dehydration, poor appetite Hypokalemia -As per daughter, the patient was not getting up from bed for the last 4 days and was somewhat confused, not eating, drinking. Prior to this admission for fall with injury, patient was seen at [facility] Emergency room and found to have potassium of 3 and got discharged -admission serum potassium of 2.7 on admission -replacing potassium and so far serum potassium 3.2, continue to target serum potassium of 3.5 to 4 -formal speech and swallow evaluation pending, IV hydration as above -aspiration precautions, oral hygiene q nursing shift Hypophosphatemia -admission serum phosphorous 2.8 -repleted to 3.3 by 08/05/2019 Acute Kidney Injury on Chronic Kidney Disease Stage IV (however based on recent labs perhaps the CKD is stage III) -admission labs of creatinine of 2, downtrending with IV hydration Possible urinary tract infection, -on ceftriaxone, continue Hypertension -non adherent to amlodipine medications at home, will need to titrate blood pressure medication while in the hospital after MRI scans completed Deep vein thrombosis prophylaxis, sequential compression devices Full Code daughter Aleah ([phone]) Admission and Anticipated Discharge Date Admission Date: August 04, 2019 Subjective Patient seen and examined at bedside this AM with nurse and occupational therapist. Patient on commode and made a bowel movement. Stool is loose and somewhat dark brown in color. Medical doctor asked for stool to be sent fo fecal occult blood test Patient apparently has difficulty with using her hands to hold onto cup with either hand. She appears to not really move her fingers on both hands from a flexed position and therefor not gripping the cup. Occupational therapist considers this unusual because at baseline that patient reported to be able to hold objects at baseline such as walking with cane as per her daughter Aleah ([phone]) by telephone prior to this hospital presentation. In addition, patient needed 2 person assist to return to the bed. When she is positioned upright on bed without back supports, she appears to sway. Patient was assisted to be on the bedrest Nurse also requesting formal speech and swallow evaluation for patient. oral hygiene q shift, continue aspiration precautions at this time, because of hand issues will further workup the neck MRI to rule out cervical cord compression. In addition to obtain brain MRI to rule out head injury but admission head CT without contrast did not find evidence for stroke. keep NPO until speech and swallow evaluation completed. Nutrition/Hydration as D5 1/2 normal. will have neurology consult to assist with evaluating abnormal hand movements. will have orthopedic consult to help with ruling out cervical radiculopathy or cervical cord compression Patient denies acute pain. no shortness of breath. breathing on room air. no vomiting. no fever Review of Systems Review of Systems: All systems reviewed & are unremarkable except as noted in Subjective Physical Exam Eyes: PERRL, conjunctivae normal, anicteric sclerae EOM intact bilaterally ENMT: external ear and nose normal, oropharynx normal (left eye ecchymosis) Neck: normal visual inspection Respiratory: normal respiratory effort Cardiovascular: Rate/Rhythm: regular rate Gastrointestinal (Abdomen): normal bowel sounds, soft, nontender, no hepatosplenomegaly Musculoskeletal: Head/Neck/Chest: normocephalic and head atraumatic Neurologic: PERRL, EOMI, accommodation nl, no face palsy, no dysarthria Motor/Sensory: + abnormal movement Psychiatric: Orientation: alert and cooperative Patient apparently has difficulty with using her hands to hold onto cup with either hand. She appears to not really move her fingers on both hands from a flexed position and therefor not gripping the cup. Occupational therapist considers this unusual because at baseline that patient reported to be able to hold objects at baseline prior to this hospital presentation. In addition, patient needed 2 person assist to return to the bed. When she is positioned upright on bed without back supports, she appears to sway. Patient was assisted to be on the bedrest Results & Data Results & Data ([facility]) Vital Signs (Past 12 Hours) Vital Signs Temp Pulse Pulse Resp BP BP Pulse Ox 08/05/19 07:25 77 08/05/19 07:08 36.5 C 75 18 194/82 H 97 08/05/19 03:19 36.4 C L 87 18 174/77 H 96 08/05/19 01:50 79 08/05/19 01:47 79 08/04/19 23:10 36.4 C L 78 16 171/81 H 97 08/04/19 22:30 73 18 173/90 H 96
[2019-08-05] MEDS: D5W AND 1/2NSS 1,000 ML IV SCH (12:08)
--- NOTE | 2019-08-05 13:16 | Communication Note ---
Date of Service: Aug 05 2019 I just received a consultation from Dr. Stone regarding Mrs. [place] who is 79 years old and for the past several days has had poor caloric intake has not got ten out of bed and presented to [facility] yesterday with low serum potassium at 3.0. She apparently had this replaced returned home but had a mechanical fall related perhaps to tripping but perhaps due to muscle weakness, and suffered a nasal laceration requiring sutures as well as trauma to the orbital area with ecchymosis. She apparently was unconscious for a short interval but awakened and was able to contact her daughter and was brought to the hospital and had a thorough evaluation including CT scan of the head and cervical spine the latter showing no fractures or dislocations and the former showing some leukoencephalopathy and volume loss. Her potassium however was even lower at 2.7 compared to what it had been previously. Her potassium is being replaced and it has risen to 3.2 Dr. Stone is concerned because the patient continues to be very weak requiring 2 person assist and has stiffness of her hands and weakness with handgrip that would not certainly permit her to ambulate independently as she was apparently capable of doing using a walker prior to the onset of current illness Concern has been expressed about a spinal cord injury or central nervous system injury and orthopedics has been consulted along with neurology At this point I have recommended MR imaging of the brain and cervical spine as if these are negative then I think most of the weakness would be explainable on the basis of her illness and hypokalemia and another day of observation may be sufficient along with monitoring her potassium to see if she recovers back to baseline in 24 to 48 hours In that case neurologic assessment would not be necessary Alternatively if we do see evidence for a central cervical cord trauma or hemorrhage or anything hemmorhagic in the central nervous system of posttraumatic type then referral to a tertiary care center for neurosurgical dimension or orthopedic decompression of the cervical spine will be required I will await results of imaging will review the chart and determine whether neurologic assessment is really essential today, possibly could be deferred until tomorrow or may not be necessary at all Mikhail Echeverria MD
[2019-08-05] MEDS ORDERED: GADOBUTROL 65ML VIAL IV PRN (13:43)
[2019-08-05] MEDS ORDERED: LABETALOL HCL IV 5 MG/ML 20ML IV PRN (13:48)
--- NOTE | 2019-08-05 13:58 | Magnetic Resonance Report ---
MRI OF THE BRAIN WITHOUT AND WITH IV CONTRAST CLINICAL HISTORY: Head trauma, weakness, confusion. COMPARISON STUDY: CT scan the head dated 08/04/2019 TECHNIQUE: MRI of the brain was performed from the vertex to the skull base utilizing various T1 and T2 weighted sequences. Following the IV administration of 5.5 mL of Gadavist contrast, additional enh anced images were obtained. FINDINGS: Sagittal T1, axial diffusion, proton density and T2 weighted axial, coronal FLAIR, and pre and post a xial T1-weighted images were acquired. These were supplemented with post gadolinium coronal T1 weight ed images. No intra or extra-axial mass lesions are visualized. Axial diffusion-weighted images reveal no evidence of acute or subacute infarction. There is no evidence of ventricular dilatation. Proton density T2-weighted and FLAIR images reveal moderate scattered foci of increased T2 signal wit hin the white matter, likely on a small vessel basis. There are no abnormal flow voids. There is no evidence of pathologic enhancement. IMPRESSION: 1. No acute intracranial findings 2. No MRI evidence of acute intracranial hemorrhage 3. No evidence of acute or subacute infarction 4. No evidence of intracranial mass 5. Foci of increased T2 signal within the white matter, likely on a small vessel ischemic basis ACT 112: Negative or not required by law. Electronically signed by: Edgar Mosley M.D. 08/05/2019 1:57 PM
--- NOTE | 2019-08-05 14:04 | Magnetic Resonance Report ---
MR cervical spine wo/w con CLINICAL HISTORY: 79 years-old Female presenting with status post fall on 08/04/2019, now with weakness and confusion, negative CT cervical spine. TECHNIQUE: Multisequence, multiplanar MR imaging of the cervical spine was performed before and after the administration of intravenous contrast. IV contrast: 5.5 mL of Gadavist. COMPARISON: CT from 08/04/2019. FINDINGS: Localizer images: Unremarkable. Straightening of the cervical spine from C3 to C6 with slightly exaggerated lordotic curvature at C7. Trace retrolisthesis of C5 on C6 may be present versus asymmetric intervertebral disc height loss po steriorly relative to anteriorly. Vertebral bodies otherwise maintain normal height, alignment, and b one marrow signal intensity. Intervertebral disc desiccation without the cervical spine with the exce ption of C5-6, which contains fluid. There is also mild prevertebral edema evident. Suspected disrupt ion of the anterior longitudinal ligament at the level of C5-6 (series 4 image 7). Extensive edema is also noted in the nuchal ligament and interspinous ligament from the level of the skull base to C5. In retrospect a nondisplaced fracture of the spinous process of C5 is present. Severe spinal canal narrowing at the level of C5 and C6, where there is no demonstrable residual CSF signal at these levels. This is due to disc osteophyte complexes and ligamentum flavum thickening as well as the alignment. No evidence of an epidural collection, however, mild hyperemia of the perivert ebral and epidural fat at the level of C6. Increased spinal cord signal intensity at the level of C4- 5. Degenerative change elsewhere in the cervical spine results in multilevel neural foraminal narrowing, mild right and moderate left at C3-4, mild bilateral at C4-5, severe bilateral at C5-6, and mild santa ateral at C6-7. Craniocervical junction normal. Remainder of the visualized soft tissues within normal limits. IMPRESSION: 1. Findings suggest a hyperextension injury pattern with disruption of the anterior longitudinal lig ament at C5-6 and both prevertebral and nuchal ligament/interspinous ligament edema. In retrospect a nondisplaced fracture of the spinous process of C5 is present. 2. Findings highly concerning for spinal cord edema, which could be due to acute on chronic spinal c ord impingement at C5 and C6 versus, less likely, traumatic spinal cord injury. Neurosurgery/orthoped ic consultation recommended. 3. Multilevel neural foraminal narrowing. The report will be called/faxed according to standard departmental protocol. ACT 112: Negative or not required by law. Electronically signed by: Wesley Lindquist M.D. 08/05/2019 2:03 PM
[2019-08-05] MEDS ORDERED: ACETAMINOPHEN 1,000 MG/100 ML VIAL IV PRN (14:36)
[2019-08-05] MEDS ORDERED: HYDROmorphone INJ 0.5 MG/0.5 ML SYR IV PRN (14:37)
--- NOTE | 2019-08-05 15:14 | Communication Note ---
Date of Service: August 05, 2019 I have just reviewed the MRI images of the cervical spine and brain and the radiology report which does indicate the presence of a mid cervical injury with rupture of the anterior and posterior medical ligaments and impressive cord swelling with I think an early cord signal at about C4-5 C5-6. This nicey explains the clinical findings reported by Dr. Stone and physical therapist and occupational therapist and warrants the use of high-dose corticosteroids and orthopedic consultation which apparently is already been rendered by Dr. Guajardo. Neurology at this point will watch from a distance but I do not think needs to get involved directly as our input is not really going to change in clinical diagnosis or management which should reside in hands of the orthopedic surgical team Mikhail Echeverria MD
[2019-08-05] MEDS: dexAMETHasone 8 MG in SYRINGE 0 ML IV SCH ×2 (15:38→23:35)
[2019-08-05] MEDS: ACETAMINOPHEN 1,000 MG/100 ML VIAL IV SCH ×2 (15:38→21:50)
[2019-08-05 16:28] LABS: Calcium 8.4 mg/dl (8.5-10.1); Creatinine Clr Calc Pharmacy 27.7 ml/min; Est GFR (African American) 49.1; Est GFR (Non-African American) 42.4; Potassium 3.2 mmol/L (3.5-5.1)
[2019-08-05] MEDS: LABETALOL HCL IV 5 MG/ML 20ML IV PRN (19:23)
[2019-08-05] MEDS: cefTRIAXone SODIUM 1,000 MG in DEXTROSE 5% 50 ML IV SCH (21:12)
[2019-08-05] MEDS: SODIUM CHLORIDE 0.9% 500 ML IV SCH (22:47)
[2019-08-05] MEDS ORDERED: HydrALAZINE HCL 20 MG/ML VIAL IV ONE (23:27)
[2019-08-06] MEDS: D5W AND 1/2NSS 1,000 ML IV SCH (03:16)
[2019-08-06] MEDS: LABETALOL HCL IV 5 MG/ML 20ML IV PRN ×3 (03:16→15:49)
[2019-08-06] MEDS: ACETAMINOPHEN 1,000 MG/100 ML VIAL IV SCH ×2 (05:54→15:44)
[2019-08-06] MEDS: dexAMETHasone 8 MG in SYRINGE 0 ML IV SCH ×2 (08:59→15:30)
[2019-08-06] MEDS ORDERED: CALCITRIOL 0.25 MCG CAPSULE PO SCH (09:00)
[2019-08-06] MEDS ORDERED: HydrALAZINE HCL 20 MG/ML VIAL IV PRN (09:32)
[2019-08-06 10:37] LABS: BUN Creatinine Ratio 12.1 (10-20); Calcium 8.2 mg/dl (8.5-10.1); Est GFR (African American) 51.7; Est GFR (Non-African American) 44.6; Potassium 2.6 mmol/L (3.5-5.1)
[2019-08-06] MEDS: NSS + 20MEQ KCL 20 MEQ/1,000 ML BAG IV SCH (13:26)
[2019-08-06] MEDS: POTASSIUM CHLORIDE / WTR 10 MEQ/100 ML PLCT IV SCH ×4 (13:27→16:26)
--- NOTE | 2019-08-06 14:14 | Orthopedic Consultation ---
Date of Consultation August 06, 2019 Assessment & Plan (1) Myelopathy concurrent with and due to spinal stenosis of cervical region: At this time the patient does have an unstable fracture pre-existing cervical spinal stenosis and evidence of cord damage. I had long discussion with this patient and her daughter and am recommending cervical spine stabilization. We will plan for a C5 corpectomy to adequately decompress the canal and subsequent fusion C4-C6. Risk benefits pros cons and alternatives were outlined in detail. She will be made n.p.o. and plan for surgery tomorrow. Present on Admission?: Yes (2) Fracture of cervical spine with cord lesion: History of Present Illness Reason for Consultation: Arm weakness and numbness status post fall Attending Physician: Malissa Moon MD History of Present Illness Is a very pleasant 79-year-old female that fell 2 days ago while at home. She does live alone. Does take care of her self. After admission she was complaining of numbness and tingling in her arms with decreased ability to use her arms. Allergies Allergy/AdvReac Type Severity Reaction Status Date / Time No Known Allergies Allergy Unknown Verified 08/04/19 20:09 Home Medications Home Medications Medication Instructions Recorded Confirmed Type amlodipine 2.5 mg PO DAILY 08/04/19 08/04/19 History aspirin [Aspirin Low Dose] 81 mg PO DAILY 08/04/19 08/04/19 History atorvastatin 40 mg PO DAILY 08/04/19 08/04/19 History calcitriol 0.25 mcg PO 3XWK 08/04/19 08/04/19 History cholecalciferol (vitamin D3) 25 mcg PO DAILY 08/04/19 08/04/19 History Patient History Medical History CKD (chronic kidney disease) Hyperlipidemia Hypertension Social History Preferred Language: Tanzanian Communication Ability: Impaired Credit Intern Required: No Beliefs That Will Affect Care: None marital status: / Current Living Situation: Alone Other Information That Helps Us Care for You: No Feels Safe at Home: Yes Safety Concerns: Feels Safe At This Time Smoking Status: Former smoker Smoking End Date: "couple years ago" ; Hx Alcohol Use: No Hx Substance Use: No Physical Exam Physical Exam: On exam she is alert but struggles with orientation. She has marked limitations with grasp bilateral hands. There is a 2 beat nonsustained clonus to the lower extremities. She has full active range of motion of her shoulders bilaterally. Sensory appears to be intact to the upper extremities. Deep tendon reflexes are diminished. Results & Data ([facility]) Vital Signs (Past 12 Hours) Vital Signs Temp Pulse Pulse Resp BP BP Pulse Ox 08/06/19 11:36 36.4 C L 83 18 186/86 H 98 08/06/19 07:31 74 08/06/19 07:16 35.9 C L 77 16 187/80 H 191/80 H 98 08/06/19 02:51 36.4 C L 78 19 176/84 H 97 08/06/19 02:16 72 Diagnostic Findings MRI of the cervical spine obtained demonstrates evidence of fracture across the C5-6 anterior longitudinal ligament. There is evidence of significant cervical spinal stenosis. There is edema within the cord.
[2019-08-06] MEDS: AMLODIPINE BESYLATE 5 MG TAB PO SCH (14:31)
--- NOTE | 2019-08-06 18:19 | Hospitalist Progress Note ---
Date of Service August 06, 2019 Assessment & Plan (1) Fall: Ambulatory Dysfunction Present on admission after sustaining a fall CT head showed no acute intracranial abnormality CT cervical showed no fractures within the cervical spine. Generalized degenerative change. MRI head showed no acute intracranial abnormality Continue PT/OT Fall precaution Myelopathy concurrent with and due to spinal stenosis of cervical region: Fracture of cervical spine with cord lesion: Decrease motor deficit to grasp hand B/L Cervical MRI showed findings suggest a hyperextension injury pattern with disruption of the anterior longitudinal ligament at C5-6 and both prevertebral a nd nuchal ligament/interspinous ligament edema. In retrospect a nondisplaced fracture of the spinous process of C5 is present. concerning for spinal cord edema, which could be due to acute on chronic spinal cord impingement at C5 and C6 versus, less likely, traumatic spinal cord injury. Orthopedic on board recommended cervical spine stabilization Plan for C5 corpectomy to adequately decompress the canal and subsequent fusion C4-C6 tomorrow Pt said that she was using a cane before the fall. Denies any chest pain, palpitation and SOB Pt has significant risk such as CAD, but denies any cardiac and pulmonary symptoms Ortho discussed risks of the procedure with daughter in detail Stable to proceed with the surgery Will keep NPO after midnight Hypertension BP elevated possible due to the hospital setting Amlodipine resumed Will start on Hydralazine IV PRN Continue monitor BP History of coronary artery disease status post coronary artery bypass graft Continue aspirin and statin Asymptomatic Stable Hyperlipidemia Continue Statin Hypokalemia Possible due to poor oral intake K today 2.6 received IV K today Continue monitor K Hypophosphatemia Admission serum phosphorous 2.8 Stable Acute Kidney Injury on Chronic Kidney Disease Stage IV Creatinine on admission 1.4 Continue Gentle IVF Creatinine stable Urinary tract infection Urine cx positive for Klebsiella PNA Continue ceftriaxone Deep vein thrombosis prophylaxis on SCD (Anticipate surgery) Full Code daughter Aleah ([phone]) Admission and Anticipated Discharge Date Admission Date: August 05, 2019 Subjective Pt was seen an examined Lying in bed with no distress Pt said that she continues to have pain She said that she still unable to make a strong spot sprayer She said that before the fall she was using a cane to ambulate Denies any chest pain, palpitation, dizziness and SOB Physical Exam Physical Exam: General- No acute distress Head- atraumatic Eyes- PERRL, EOMI, ENT- decrease hearing function Neck- supple, no JVD Lungs- clear to auscultation Heart- regular rhythm; +murmur Abdomen- normal bowel sounds, soft, nontender Extremities- no calf tenderness, decrease grasp bilateral hands Neuro- alert, oriented; PERRL, EOMI; no facial palsy; no dysarthria Skin- warm & dry Results & Data Results & Data ([facility]) Vital Signs (Past 12 Hours) Vital Signs Temp Pulse Pulse Resp BP BP Pulse Ox 08/06/19 16:16 35.8 C L 90 20 190/106 H 98 08/06/19 11:36 36.4 C L 83 18 186/86 H 98 08/06/19 07:31 74 08/06/19 07:16 35.9 C L 77 16 187/80 H 191/80 H 98
[2019-08-06] MEDS ORDERED: POTASSIUM PHOSPHATE 21 MMOL in SODIUM CHLORIDE 0.9% 500 ML IV ONE (19:30)
[2019-08-06] MEDS ORDERED: POTASSIUM PHOS 3 MMOL/1 ML INFUSION IV ONE (21:00)
[2019-08-06] MEDS: cefTRIAXone SODIUM 1,000 MG in DEXTROSE 5% 50 ML IV SCH (21:38)
[2019-08-06] MEDS ORDERED: OLANZapine 10 MG/2.1 ML SDV IM STA (22:07)
[2019-08-06] MEDS ORDERED: OLANZapine 10 MG/2.1 ML SDV IM PRN (23:05)
[2019-08-07] MEDS: ACETAMINOPHEN 1,000 MG/100 ML VIAL IV SCH ×3 (00:02→18:23)
[2019-08-07] MEDS: dexAMETHasone 8 MG in SYRINGE 0 ML IV SCH ×3 (00:07→17:29)
[2019-08-07] MEDS ORDERED: PROPOFOL IV EMULSION 10 MG/ML 100 ML VIAL IV ONE (06:56)
[2019-08-07 08:44] LABS: Hematocrit (blood only) 31.6 % (37-47); Hemoglobin 10.7 g/dL (12.0-16.0); Mean Corpuscular Volume 85.6 fL (80-100); Mean Platelet Volume 10.8 fL (7.4-10.4); Nucleated RBC # (auto) 0.03 K/uL (0-0); Nucleated RBC % (auto) 0.3 %; Platelet Count 222 K/uL (130-400); RDW Coefficient of Variation 17.4 % (11.5-14.5); RDW Standard Deviation 53.7 fL (36.4-46.3); Red Blood Count 3.69 M/uL (4.2-5.4); White Blood Count 11.36 K/uL (4.8-10.8)
[2019-08-07 08:53] LABS: Mean Corpuscular Hgb Conc 33.9 g/dL (32-36)
[2019-08-07 09:00] LABS: Calcium 7.9 mg/dl (8.5-10.1); Creatinine Clr Calc Pharmacy 34.3 ml/min; Est GFR (African American) 57.7; Est GFR (Non-African American) 49.8; Potassium 3.2 mmol/L (3.5-5.1)
[2019-08-07] MEDS: AMLODIPINE BESYLATE 5 MG TAB PO SCH (09:33)
[2019-08-07] MEDS: NSS + 20MEQ KCL 20 MEQ/1,000 ML BAG IV SCH (09:34)
[2019-08-07] MEDS: POTASSIUM CHLORIDE / WTR 10 MEQ/100 ML PLCT IV SCH ×3 (09:44→14:26)
[2019-08-07] MEDS ORDERED: ONDANSETRON INJ 2 MG/ML 2 ML VIAL ONE (10:50)
[2019-08-07] MEDS ORDERED: ROCURONIUM BROMIDE 10 MG/ML 5 ML VIAL ONE (10:50)
[2019-08-07] MEDS ORDERED: LIDOCAINE HCL 2% 2 ML VIAL/AMP(20MG/ML) INFIL ONE (10:50)
[2019-08-07] MEDS ORDERED: PROPOFOL IV EMULSION 10 MG/ML 20 ML VIAL IV ONE (10:50)
[2019-08-07] MEDS ORDERED: DEXAMETHASONE SOD INJ 4 MG/ML VIAL ONE (10:50)
--- NOTE | 2019-08-07 12:28 | Anesthesiology Consultation ---
Date of Service August 07, 2019 Assessment & Plan (1) Encounter for pre-operative examination: Chart Review Chart Review: Acceptable Risk for Surgery Consults Requested none ASA ASA4 Proposed Anesthesia Anesthesia Type: General Risk / Benefits Reviewed With: PT / POA / Parent / Guardian, Accepts Plan and Informed Consent Obtained Additional Comments: The plan is to keep the cervical collar on the patient during intubation. History Surgery Operation Date: 08/07/19 12:20 Proposed Procedures p C5 Anterior Cervical Corpectomy, Spinal Cord Monitoring - Jamal Guajardo DO Height/Weight Height: 5 ft 1 in Weight: 57.6 kg Allergies Allergy/AdvReac Type Severity Reaction Status Date / Time No Known Allergies Allergy Unknown Verified 08/04/19 20:09 Medications Home Medications Medication Instructions Recorded Confirmed Last Taken amlodipine 2.5 mg PO DAILY 08/04/19 08/04/19 Unknown aspirin [Aspirin Low Dose] 81 mg PO DAILY 08/04/19 08/04/19 Unknown atorvastatin 40 mg PO DAILY 08/04/19 08/04/19 Unknown calcitriol 0.25 mcg PO 3XWK 08/04/19 08/04/19 Unknown cholecalciferol (vitamin D3) 25 mcg PO DAILY 08/04/19 08/04/19 Unknown Active Medications Generic Name Dose Route Start Last Admin Trade Name Freq PRN Reason Stop Dose Admin Amlodipine Besylate 5 mg 08/06/19 13:15 08/07/19 09:33 Norvasc PO 09/05/19 13:14 5 mg QAM PATRICA Administration Ceftriaxone Sodium 1,000 mg/ 50 mls @ 100 mls/hr 08/05/19 21:00 08/06/19 22:08 Dextrose IV 08/15/19 20:59 Infused Q24H PATRICA Infusion Protocol Dexamethasone 8 mg/ Syringe 2 mls @ 1 mls/min 08/05/19 16:00 08/07/19 08:58 IV 09/04/19 14:44 1 mls/min Q8H PATRICA Administration Acetaminophen 1,000 mg in 100 mls @ 400 mls/hr 08/05/19 14:45 08/07/19 09:40 Ofirmev IV 08/08/19 14:44 Infused Q8H PATRICA Infusion Potassium Chloride/Sodium Chloride 20 meq in 1,000 mls @ 50 mls/hr 08/06/19 12:30 08/07/19 09:34 Normal Saline W/20 Meq Kcl IV 09/05/19 12:29 50 mls/hr .Q20H PATRICA Administration Potassium Chloride 10 meq in 100 mls @ 100 mls/hr 08/07/19 10:00 08/07/19 11:12 K Luis / Wtr IV 08/07/19 12:59 100 mls/hr Q1H PATRICA Administration Labetalol HCl 5 mg 08/05/19 14:48 08/06/19 15:49 Normodyne IV 09/04/19 13:47 5 mg Q6H PRN Administration Blood Pressure - High Ondansetron HCl 4 mg 08/04/19 22:57 08/05/19 23:41 Zofran IV 09/03/19 22:56 4 mg Q6H PRN Administration Nausea NPO Date Last Intake of Fluids: 08/07/19 Time Last Intake of Fluids: 08:30 Date Last Intake of Solids: 08/06/19 Time Last Intake of Solids: 00:00 Past Medical History Medical History CKD (chronic kidney disease) Hyperlipidemia Hypertension Exercise / Class Metabolic Activity IV < 2 Limit ADL/Bedbound Past Anesthesia History No Hx of Anesthesia Complications and No Family Hx of Anesthesia Complications History of PONV No Hx of PONV and No Hx of Motion Sickness Social History Smoking Status: Former smoker Smoking End Date: "couple years ago" Hx Alcohol Use: No Hx Substance Use: No Physical Exam Vital Signs Last Vital Signs Temp 97.5 F L 08/07/19 12:08 Pulse 90 08/07/19 12:08 Resp 18 08/07/19 12:08 BP 178/96 H 08/07/19 12:08 Pulse Ox 99 08/07/19 12:08 ENMT Mouth: + edentulous Thyromental Distance: > or= 3.5 Finger Breadths Mallampati Class: II Neck normal visual inspection Respiratory normal respiratory effort Auscultation: lungs clear to auscultation bilaterally Cardiovascular Rate/Rhythm: regular rate and regular rhythm Neurologic moves all extremities (decreased strength in all 4 extremities) Testing Laboratory Results 08/07/19 03:00 08/07/19 08:26 PT 11.9 Seconds (9.0-12.0) 08/04/19 17:40 INR 1.1 (0.9-1.1) 08/04/19 17:40 APTT 23.1 Seconds (21.0-31.0) 08/04/19 17:40 Urine Color Dark Yellow 08/04/19 19: Urine Appearance Cloudy (Clear) A 08/04/19 19: Urine pH 5.0 (4.5-7.5) 08/04/19 19: Ur Specific [place] 1.022 (1.000-1.030) 08/04/19 19: Urine Protein 2+ (Negative) H 08/04/19 19: Urine Glucose (UA) Negative (Negative) 08/04/19 19: Urine Ketones 1+ (Negative) H 08/04/19 19: Urine Nitrite Negative (Negative) 08/04/19 19: Ur Leukocyte Esterase Trace (Negative) H 08/04/19 19:26 Urine WBC (Auto) 10-30 /hpf (0-5) H 08/04/19 19:26 Urine RBC (Auto) 0-4 /hpf (0-4) 08/04/19 19:26 U Hyaline Cast (Auto) 10-30 /lpf (0-5) H 08/04/19 19:26 U Epithel Cells (Auto) >30 /lpf (0-5) H 08/04/19 19:26 Urine Bacteria (Auto) 4+ (Negative) H 08/04/19 19:26 Blood Type O Positive 08/07/19 08:26 Antibody Screen NEGATIVE 08/07/19 08:26 08/04/19 21:02 Aerobic Blood Culture - Preliminary Blood No growth in Aerobic bottle after 48 hours. Anaerobic Blood Culture - Preliminary No growth in Anaerobic bottle after 48 hours. 08/04/19 21:22 Aerobic Blood Culture - Preliminary Blood No growth in Aerobic bottle after 48 hours. Anaerobic Blood Culture - Preliminary No growth in Anaerobic bottle after 48 hours. 08/04/19 19:26 Urine Culture - Final Urine,Straight Cath Klebsiella pneumoniae Electrocardiogram Date: 08/04/19 Poor data quality, interpretation may be adversely affected Normal sinus rhythm, rate 73 bpm Voltage criteria for left ventricular hypertrophy Abnormal ECG When compared with ECG of 10-MAR-2011 06:41, Premature ventricular complexes are no longer Present Otherwise no significant change Confirmed by Mina Contreras ([id number]) on 08/05/2019 8:20:24 AM Other Testing Chest CT 08/04/19 FINDINGS: Prior median sternotomy. Mild cardiomegaly. Lungs are clear. No focal infiltrative process. Moderate degenerative change thoracic spine with no acute process. IMPRESSION: No acute process. Cervical MRI 08/05/19 IMPRESSION: 1. Findings suggest a hyperextension injury pattern with disruption of the anterior longitudinal ligament at C5-6 and both prevertebral and nuchal ligament/interspinous ligament edema. In retrospect a nondisplaced fracture of the spinous process of C5 is present. 2. Findings highly concerning for spinal cord edema, which could be due to acute on chronic spinal cord impingement at C5 and C6 versus, less likely, traumatic spinal cord injury. Neurosurgery/orthopedic consultation recommended. 3. Multilevel neural foraminal narrowing.
[2019-08-07] MEDS ORDERED: fentaNYL citrate 100 MCG/2 ML VIAL ONE ×2 (12:34→13:58)
[2019-08-07] MEDS ORDERED: BACITRACIN INJ 50,000 UNIT VIAL ONE (12:35)
--- NOTE | 2019-08-07 12:37 | History & Physical Bridge Note ---
Date of Service August 07, 2019 History & Physical Bridge Note I have examined the patient, reviewed the History & Physical and in the interval since the performance of the History & Physical I have noted the following changes of clinical significance: no changes noted
[2019-08-07] MEDS ORDERED: ePHEDrine sulfate 50 MG/ML AMP IV PRN (12:54)
[2019-08-07] MEDS ORDERED: ATROPINE SULFATE 0.1 MG/ML 10ML SYR IV PRN (12:54)
[2019-08-07] MEDS ORDERED: fentaNYL citrate 100 MCG/2 ML VIAL IV PRN (12:54)
[2019-08-07] MEDS ORDERED: ONDANSETRON INJ 2 MG/ML 2 ML VIAL IV PRN ×2 (12:54→16:34)
[2019-08-07] MEDS ORDERED: PHENYLEPHRINE HCL 10 MG/ML VIAL ONE (13:18)
[2019-08-07] MEDS ORDERED: CEFAZOLIN 250 MG/ML 1 GM VIAL ONE (13:36)
--- NOTE | 2019-08-07 14:43 | Operative Report ---
Post Operative Report Pre & Post Diagnosis Operation Date: 08/07/19 12:20 Pre-Op Diagnosis: Myelopathy concurrent with and due to spinal stenosis of cervical region Cervical spine fracture across C5-C6. Post-Op Diagnosis: Myelopathy concurrent with and due to spinal stenosis of cervical region Cervical spine fracture across C5-C6. I identified the patient and participated in the time-out.: Yes Procedure Operation Date: 08/07/19 12:20 Actual Procedures #1 anterior cervical corpectomy C5. #2 anterior cervical arthrodesis C4-C6. #3 placement of peek cage 19 mm in height between C4 and C6. #4 placement locally harvested morselized autograft combined with DBM and interbody cage. #5 application of kapoor plate and screws across the 4 to C6. Surgeon Jamal Guajardo, Machine Shop Repair Technician Sandy Poe Estimated Blood Loss 10 Findings Consistent with Post-Op Diagnosis Specimens None Indications This is a 79-year-old female who presents status post fall with a fracture across the C5-6 disc space. Obvious instability and severe spinal stenosis was noted. She had neurologic decline including bilateral upper extremities and lo wer extremities. Subsequently we underwent decompression and stabilization. Description of Procedure Patient was met with preop the case discussed all questions were addressed. That point patient was taken to the operative suite underwent an patient placed in supine position Nolan table with with the head in the [facility] head and neck surgeon. All bony prominences well-padded eyes inspected to ensure no external pressure placed upon the bed at this point the anterior cervical spine was prepped and draped in also fashion. The assistance of fluoroscopy identified the see 5 vertebral body and a transverse incision was placed on the right anterior aspect of the cervical spinal lines region. Sharp dissection with the assistance of bipolar electrocautery was performed down to and exposing the anterior cervical spine from C3-4 to C6. A self-retaining retractor was placed. Informed complete discectomy of C4-5 out to the uncovertebral joints bilaterally followed by see 5 6. Obvious fracture was noted across the C5-6 disc space and increased mobility. I did remove the C5 vertebral body its entirety including but all posterior annular fibers and longitudinal ligament for complete decompression. The endplates were then burred to subcortical bleeding bone and a 19 mm peek cage filled locally harvested morselized autograft and DBM tapped in position. 5 complete and screws was then applied with the assistance of fluoroscopy. Incision was then copiously irrigated explored to ensure no damage to surrounding structures remaining bleeding. 10 round HELIO drain inserted. Incision was then closed with 2 Vicryl in the fashion of 4 Monocryl for final skin closure. Steri-Strips dressings placed. Patient will continue PACU stable condition. Please note Sandy Poe was present at the entire procedure involved the patient positioning complex portions of the surgery and final skin closure. Lastly spinal cord monitoring was utilized throughout the procedure no changes noted. I attest to the content of the Intraoperative Record and any orders documented therein. Any exceptions are noted below.
--- NOTE | 2019-08-07 15:15 | Fluoroscopy Report ---
FL cervical 2-3V CLINICAL HISTORY: C5 CORPECTOMY COMPARISON STUDY: CT of the cervical spine August 04, 2019. MRI of the cervical spine August 05, 2019. FLUOROSCOPY TIME: 12 seconds. FLUOROSCOPIC IMAGES: 2 FINDINGS: These images demonstrate a C5 corpectomy and C4-C6 anterior fusion. Surgical drain is in pl [place]. Hardware is intact. IMPRESSION: Fluoroscopy provided for C5 corpectomy and C4-C6 anterior fusion. ACT 112: Negative or not required by law. Electronically signed by: Evangelista Courtney M.D. 08/07/2019 3:14 PM
--- NOTE | 2019-08-07 16:12 | Anesthesiology Progress Note ---
Date of Service August 07, 2019 Anesthesia Post Procedure Vital Signs Vital Signs: Temp Pulse Pulse Resp BP BP Pulse Ox 08/07/19 16:10 97.5 F L 78 20 161/94 H 98 08/07/19 16:00 97.5 F L 78 20 168/85 H 98 08/07/19 15:50 88 20 165/107 H 99 08/07/19 15:40 85 15 191/96 H 100 08/07/19 15:30 85 21 158/99 H 100 08/07/19 15:20 96.8 F L 95 H 16 162/84 H 100 08/07/19 12:08 97.5 F L 90 18 178/96 H 99 08/07/19 12:05 97.5 F L 94 H 20 179/92 H 100 08/07/19 10:25 87 20 163/88 H 100 08/07/19 07:15 90 08/07/19 02:14 96 H 08/06/19 22:30 99 H 20 172/89 H 99 08/06/19 19:25 97.7 F 97 H 20 159/83 H 98 08/06/19 16:16 96.4 F L 90 20 190/106 H 98 Transfer of Care Handoff Completed per policy Notes Mental Status: alert / awake / arousable and participated in evaluation Patient Amnestic to Procedure: Yes Nausea / Vomiting: adequately controlled Pain: adequately controlled Airway Patency, RR, SpO2: stable & adequate BP & HR: stable & adequate Hydration State: stable & adequate Anesthetic Complications: no major complications apparent and Pt Satisfied with anesthetic care
[2019-08-07] MEDS ORDERED: ALUMINUM/MAGNESIUM SUSP 30 ML UDC PO PRN (16:34)
[2019-08-07] MEDS ORDERED: ACETAMINOPHEN 500 MG TAB PO PRN (16:34)
[2019-08-07] MEDS ORDERED: LORazepam 0.5 MG TAB PO PRN (16:34)
[2019-08-07] MEDS ORDERED: METOCLOPRAMIDE HCL INJ 5 MG/ML 2 ML VIAL IV PRN (16:34)
[2019-08-07] MEDS ORDERED: LORazepam 0.5 MG/1 ML VIAL IV PRN (16:34)
[2019-08-07] MEDS ORDERED: SODIUM CHLORIDE 0.9% 1000ML 1,000 ML IV SCH (16:34)
[2019-08-07] MEDS ORDERED: PROMETHAZINE HCL 12.5 MG in SODIUM CHLORIDE 0.9% 50 ML IV PRN (16:34)
[2019-08-07] MEDS ORDERED: ONDANSETRON 4 MG OD TAB PO PRN (16:34)
[2019-08-07] MEDS ORDERED: DO NOT ADMINISTER FLU VACCINE PRN (16:34)
[2019-08-07] MEDS ORDERED: FAMOTIDINE 20 MG TAB PO PRN (16:34)
[2019-08-07] MEDS ORDERED: TRAMADOL HCL 50 MG TABLET PO PRN (16:34)
[2019-08-07] MEDS ORDERED: RACEPINEPHRINE 2.25% NEBU SOLN 0.5 ML VIAL INH PRN (16:34)
[2019-08-07] MEDS ORDERED: SOD PHOSPHATE/SOD BIPHOSPHATE ENEMA 132 ML BTL PR PRN (16:34)
[2019-08-07] MEDS ORDERED: HYDROmorphone INJ 0.5 MG/0.5 ML SYR IV PRN (16:34)
[2019-08-07] MEDS ORDERED: DO NOT ADMINISTER PNEUMOCOCCAL VACCINE PRN (16:34)
[2019-08-07] MEDS ORDERED: DEXAMETHASONE SOD PHOSPHATE 8 MG in SYRINGE 0 ML IV PRN (16:34)
[2019-08-07] MEDS ORDERED: NALOXONE HCL 0.4 MG/1 ML VIAL/CARP IV PRN (16:34)
[2019-08-07] MEDS ORDERED: ACETAMINOPHEN 1,000 MG/100 ML VIAL IV PRN (16:34)
[2019-08-07] MEDS ORDERED: MAGNESIUM HYDROXIDE SUSP 30 ML UDC PO PRN (16:34)
--- NOTE | 2019-08-07 19:16 | Hospitalist Progress Note ---
Date of Service August 07, 2019 Assessment & Plan (1) Fall: Ambulatory Dysfunction Present on admission after sustaining a fall CT head showed no acute intracranial abnormality CT cervical showed no fractures within the cervical spine. Generalized degenerative change. MRI head showed no acute intracranial abnormality Continue PT/OT Fall precaution Myelopathy concurrent with and due to spinal stenosis of cervical region: Fracture of cervical spine with cord lesion: Decrease motor deficit to grasp hand B/L Pt said that she was using a cane before the fall. Denies any chest pain, palpitation and SOB Cervical MRI showed findings suggest a hyperextension injury pattern with disruption of the anterior longitudinal ligament at C5-6 and both prevertebral and nuchal ligament/interspinous ligament edema. In retrospect a nondisplaced fracture of the spinous process of C5 is present. concerning for spinal cord edema, which could be due to acute on chronic spinal cord impingement at C5 and C6 versus, less likely, traumatic spinal cord injury. Orthopedic on board recommended cervical spine stabilization S/P anterior cervical corpectomy C5. #2 anterior cervical arthrodesis C4-C6. #3 placement of peek cage 19 mm in height between C4 and C6. #4 placement locally harvested morselized autograft combined with DBM and interbody cage. #5 application of kapoor plate and screws across the 4 to C6 performed by Dr. Guajardo today Monitor Hgb PT/OT as per ortho Will resume aspirin once bleeding stable Hypertension BP elevated possible due to the hospital setting Continue Amlodipine 5mg On Hydralazine IV PRN Continue monitor BP History of coronary artery disease status post coronary artery bypass graft Continue aspirin and statin Asymptomatic Stable Hyperlipidemia Continue Statin Hypokalemia Possible due to poor oral intake K today 3.2 today K replaced Continue monitor K Hypophosphatemia Admission serum phosphorous 2.8 Stable Acute Kidney Injury on Chronic Kidney Disease Stage IV Creatinine on admission 1.4 Continue Gentle IVF Creatinine stable Urinary tract infection Urine cx positive for Klebsiella PNA Continue ceftriaxone Deep vein thrombosis prophylaxis on SCD (Anticipate surgery) Full Code daughter Aleah ([phone]) Admission and Anticipated Discharge Date Admission Date: August 05, 2019 Subjective Pt was seen and examined before surgery Pt said that that her pain is controlled She said that she continue to have difficulty to form a doctor osteopathic with both hands Denies any chest pain, palpitation, dizziness and SOB Physical Exam Physical Exam: General- No acute distress Head- atraumatic Eyes- PERRL, EOMI, ENT- decrease hearing function Neck- supple, no JVD Lungs- clear to auscultation Heart- regular rhythm; +murmur Abdomen- normal bowel sounds, soft, nontender Extremities- no calf tenderness, decrease grasp bilateral hands Neuro- alert, oriented; PERRL, EOMI; no facial palsy; no dysarthria Skin- warm & dry Results & Data Results & Data ([facility]) Vital Signs (Past 12 Hours) Vital Signs Temp Pulse Pulse Resp BP Pulse Ox 08/07/19 18:28 91 H 18 163/84 H 08/07/19 17:59 36.2 C L 08/07/19 17:25 35.9 C L 90 16 161/92 H 08/07/19 16:55 36.4 C L 76 16 169/85 H 08/07/19 16:53 83 18 08/07/19 16:10 36.4 C L 78 20 161/94 H 98 08/07/19 16:00 36.4 C L 78 20 168/85 H 98 08/07/19 15:50 88 20 165/107 H 99 08/07/19 15:40 85 15 191/96 H 08/07/19 15:30 85 21 158/99 H 08/07/19 15:20 36.0 C L 95 H 16 162/84 H 08/07/19 12:08 36.4 C L 90 18 178/96 H 99 08/07/19 12:05 36.4 C L 94 H 20 179/92 H 08/07/19 10:25 87 20 163/88 H 08/07/19 07:15 90
[2019-08-07] MEDS: cefTRIAXone SODIUM 1,000 MG in DEXTROSE 5% 50 ML IV SCH (20:46)
[2019-08-07] MEDS ORDERED: POTASSIUM CHLORIDE 40 MEQ in SODIUM CHLORIDE 0.9% 1000ML 1,000 ML IV ONE (21:01)
[2019-08-07 21:22] LABS: Hemoglobin 9.9 g/dL (12.0-16.0)
[2019-08-07] MEDS: CEFAZOLIN 1000MG 1,000 MG/7.5 ML SYR IV SCH (21:30)
[2019-08-07] MEDS: DOCUSATE SODIUM/SENNA 50/8.6MG TAB PO SCH (21:37)
[2019-08-07] MEDS ORDERED: cloNIDine HCL 0.1 MG TAB PO ONE (21:41)
[2019-08-07 21:42] LABS: BUN Creatinine Ratio 16.1 (10-20); Calcium 7.4 mg/dl (8.5-10.1); Creatinine Clr Calc Pharmacy 30.3 ml/min; Est GFR (African American) 49.6; Est GFR (Non-African American) 42.8; Magnesium 1.4 mg/dl (1.8-2.4)
[2019-08-07 21:43] LABS: Potassium 3.8 mmol/L (3.5-5.1)
[2019-08-07] MEDS ORDERED: POTASSIUM CHLORIDE 20 MEQ TABCR PO STA (21:48)
[2019-08-07] MEDS: MAGNESIUM SULFATE / D5W 1 GM/100 ML BAG IV SCH ×2 (22:08→23:10)
--- NOTE | 2019-08-07 22:18 | Communication Note ---
Date of Service: August 07, 2019 Made aware by RN of postop tachycardia, cardiac rate 1 10-1 30s, SBP 150-190s the last 72 hours. Patient sleeping as per RN. EKG as per my interpretation: Rate 115, sinus tachycardia with PVCs AP Hypertensive urgency Postop tachycardia with PVCs PCU transfer for closer monitoring Initiate beta-anna marie for additional BP control and to suppress ectopy. Will relay to AM provider.
[2019-08-07] MEDS ORDERED: METOPROLOL TARTRATE 25 MG TAB PO STA (22:19)
[2019-08-08] MEDS: MAGNESIUM SULFATE / D5W 1 GM/100 ML BAG IV SCH (00:23)
[2019-08-08] MEDS: dexAMETHasone 8 MG in SYRINGE 0 ML IV SCH ×4 (00:23→23:33)
[2019-08-08] MEDS ORDERED: METOPROLOL TARTRATE 50 MG TAB PO SCH (04:15)
[2019-08-08] MEDS: AMLODIPINE BESYLATE 5 MG TAB PO SCH (04:30)
[2019-08-08] MEDS: CEFAZOLIN 1000MG 1,000 MG/7.5 ML SYR IV SCH (05:21)
[2019-08-08 07:00] LABS: Hematocrit (blood only) 32.3 % (37-47); Hemoglobin 10.5 g/dL (12.0-16.0); Immature Granulocytes # (auto) 0.07 K/uL (0.00-0.02); Immature Granulocytes % (auto) 0.8 %; Lymphocytes # (auto) 0.46 K/uL (1.2-3.4); Lymphocytes % (auto) 5.3 %; Mean Corpuscular Hemoglobin 28.5 pg (25-34); Mean Corpuscular Hgb Conc 32.5 g/dL (32-36); Mean Corpuscular Volume 87.5 fL (80-100); Mean Platelet Volume 10.6 fL (7.4-10.4); Monocytes # (auto) 0.13 K/uL (0.11-0.59); Monocytes % (auto) 1.5 %; Neutrophils # (auto) 7.99 K/uL (1.4-6.5); Neutrophils % (auto) 92.4 %; Nucleated RBC # (auto) 0.09 K/uL (0-0); Platelet Count 216 K/uL (130-400); RDW Coefficient of Variation 17.7 % (11.5-14.5); RDW Standard Deviation 55.4 fL (36.4-46.3); Red Blood Count 3.69 M/uL (4.2-5.4); White Blood Count 8.65 K/uL (4.8-10.8)
[2019-08-08 07:32] LABS: BUN Creatinine Ratio 15.2 (10-20); Calcium 7.8 mg/dl (8.5-10.1); Creatinine Clr Calc Pharmacy 27.7 ml/min; Est GFR (African American) 44.6; Est GFR (Non-African American) 38.4; Magnesium 2.4 mg/dl (1.8-2.4)
--- NOTE | 2019-08-08 08:17 | Electrocardiogram Report ---
Test Reason : Blood Pressure : / mmHG Vent. Rate : 115 BPM Atrial Rate : 115 BPM P-R Int : 152 ms QRS Dur : 074 ms QT Int : 306 ms P-R-T Axes : 033 -14 091 degrees QTc Int : 423 ms Sinus tachycardia with ventricular couplet Left ventricular hypertrophy with repolarization abnormality Possible Old Inferior infarct Abnormal ECG When compared with ECG of 04-AUG-2019 17:49, Premature ventricular complexes are now Present Vent. rate has increased BY 42 BPM Confirmed by Mina Contreras ([id number]) on 08/08/2019 8:17:21 AM Referred By: REFERRED SELF Confirmed By:Mina Contreras
[2019-08-08] MEDS ORDERED: METOPROLOL TARTRATE 25 MG TAB PO SCH (09:00)
--- NOTE | 2019-08-08 10:37 | Orthopedic Progress Note ---
Date of Service August 08, 2019 Assessment & Plan (1) Fracture of cervical spine with cord lesion: At this time we will maintain the HELIO drain another 24 hours. I anticipate this being removed tomorrow. She will maintain strict cervical collar immobilization. Present on Admission?: Yes Admission and Anticipated Discharge Date Admission Date: August 05, 2019 Subjective Patient is confused this morning. She is able to be awakened but does not responding to questions. Physical Exam Physical Exam: On exam she does exhibit spontaneous motion but again is unable to follow commands. Dressing is in place. HELIO drain decreasing appropriately. Results & Data ([facility]) Vital Signs (Past 12 Hours) Vital Signs Temp Pulse Pulse Resp BP BP Pulse Ox 08/08/19 07:30 82 18 95 08/08/19 07:19 36.6 C 82 18 148/81 H 95 08/08/19 05:04 36.5 C 95 H 18 95 08/08/19 04:21 148/81 H 08/08/19 03:55 36.8 C 94 H 20 160/97 H 96 08/08/19 03:23 102 H 16 96 08/08/19 02:12 84 08/08/19 00:18 36.9 C 93 H 22 168/81 H 97 08/07/19 23:16 36.7 C 92 H 16 157/92 H 99 08/07/19 23:13 94 H 14 99
[2019-08-08] MEDS: POLYETHYLENE (MIRALAX) 17 GM PACK PO SCH ×3 (14:53→23:34)
--- NOTE | 2019-08-08 15:21 | Hospitalist Progress Note ---
Date of Service August 08, 2019 Assessment & Plan (1) Fall: Ambulatory Dysfunction Present on admission after sustaining a fall CT head showed no acute intracranial abnormality CT cervical showed no fractures within the cervical spine. Generalized degenerative change. MRI head showed no acute intracranial abnormality Continue PT/OT Fall precaution Myelopathy concurrent with and due to spinal stenosis of cervical region: Fracture of cervical spine with cord lesion: Decrease motor deficit to grasp hand B/L Pt said that she was using a cane before the fall. Denies any chest pain, palpitation and SOB Cervical MRI showed findings suggest a hyperextension injury pattern with disruption of the anterior longitudinal ligament at C5-6 and both prevertebral and nuchal ligament/interspinous ligament edema. In retrospect a nondisplaced fracture of the spinous process of C5 is present. concerning for spinal cord edema, which could be due to acute on chronic spinal cord impingement at C5 and C6 versus, less likely, traumatic spinal cord injury. Orthopedic on board recommended cervical spine stabilization S/P day#1 anterior cervical corpectomy C5. #2 anterior cervical arthrodesis C4- C6. #3 placement of peek cage 19 mm in height between C4 and C6. #4 placement locally harvested morselized autograft combined with DBM and interbody cage. #5 application of kapoor plate and screws across the 4 to C6 performed by Dr. Guajardo today Maintain strict cervical collar immobilization. If we need to get a CT head to evaluate pt confusion, ok from ortho Hgb stable at 10.5 PT/OT as per ortho Will resume aspirin once bleeding stable Confused Abnormal involuntary jerking movement Case discuss with Ortho and ok from ortho if we need to get a CT If symptoms worsening or continue, will get a CT head Hypertension BP elevated possible due to the hospital setting Continue Amlodipine 5mg On Hydralazine IV PRN Improved Continue monitor BP History of coronary artery disease status post coronary artery bypass graft Continue aspirin and statin Asymptomatic Stable Hyperlipidemia Continue Statin Hypokalemia Possible due to poor oral intake K today 4 today Continue monitor K Hypophosphatemia Admission serum phosphorous 2.8 Stable Acute Kidney Injury on Chronic Kidney Disease Stage IV Creatinine on admission 1.4 Continue Gentle IVF Creatinine stable Urinary tract infection Urine cx positive for Klebsiella PNA Continue ceftriaxone Deep vein thrombosis prophylaxis on SCD (Anticipate surgery) Full Code daughter Aleah ([phone]) Admission and Anticipated Discharge Date Admission Date: August 05, 2019 Subjective Pt seen and examined Lying in bed with 1 to 1 sitter she is confused with eyes open doing involuntary jerking moves with arms Nurse said that early this morning she screamed due to the pain and said the help me No signs of respiratory distress Physical Exam Physical Exam: General- Confused Head- atraumatic Eyes- PERRL, EOMI, ENT- decrease hearing function Neck- supple, no JVD Lungs- clear to auscultation Heart- regular rhythm; +murmur Abdomen- normal bowel sounds, soft, nontender Extremities- no calf tenderness, decrease grasp bilateral hands Neuro- awake, PERRL, EOMI; no facial palsy; confused, involuntary jerking movement in upper extremities Skin- warm & dry Results & Data Results & Data ([facility]) Vital Signs (Past 12 Hours) Vital Signs Temp Pulse Pulse Resp BP Pulse Ox 08/08/19 11:27 36.3 C L 83 17 154/84 H 96 08/08/19 11:07 76 18 96 08/08/19 08:00 97 H 08/08/19 07:30 82 18 95 08/08/19 07:19 36.6 C 82 18 148/81 H 95 08/08/19 05:04 36.5 C 95 H 18 95 08/08/19 04:21 148/81 H 08/08/19 03:55 36.8 C 94 H 20 160/97 H 96 08/08/19 03:23 102 H 16 96
[2019-08-08] MEDS ORDERED: LABETALOL HCL IV 5 MG/ML 20ML IV PRN (18:26)
[2019-08-08] MEDS: cefTRIAXone SODIUM 1,000 MG in DEXTROSE 5% 50 ML IV SCH (21:22)
[2019-08-08] MEDS: METOPROLOL TARTRATE 25 MG TAB PO SCH (21:37)
[2019-08-08] MEDS: DOCUSATE SODIUM/SENNA 50/8.6MG TAB PO SCH (21:37)
[2019-08-08] MEDS: HydrALAZINE HCL 20 MG/ML VIAL IV PRN (21:53)
[2019-08-09] MEDS: POLYETHYLENE (MIRALAX) 17 GM PACK PO SCH ×4 (02:29→22:30)
[2019-08-09] MEDS: HydrALAZINE HCL 20 MG/ML VIAL IV PRN (03:51)
[2019-08-09] MEDS: dexAMETHasone 8 MG in SYRINGE 0 ML IV SCH ×2 (08:03→09:13)
[2019-08-09] MEDS: AMLODIPINE BESYLATE 5 MG TAB PO SCH ×2 (09:05→11:18)
[2019-08-09] MEDS: METOPROLOL TARTRATE 25 MG TAB PO SCH ×3 (09:05→20:26)
[2019-08-09 09:51] LABS: BUN Creatinine Ratio 29.9 (10-20); Calcium 8.3 mg/dl (8.5-10.1); Creatinine Clr Calc Pharmacy 29.5 ml/min; Est GFR (African American) 48.1; Est GFR (Non-African American) 41.5; Potassium 4.9 mmol/L (3.5-5.1)
--- NOTE | 2019-08-09 09:59 | Orthopedic Progress Note ---
Date of Service August 09, 2019 Assessment & Plan (1) Fracture of cervical spine with cord lesion: At this time will initiate physical therapy. We will maintain a clear liquid diet. We will discontinue her dressing and drain today. Present on Admission?: Yes Admission and Anticipated Discharge Date Admission Date: August 05, 2019 Subjective Patient is much more alert today. She is responding to questions. She does not appear to be in any acute distress. Physical Exam Physical Exam: Patient was able to swallow water today. She was cooperative with exam. She demonstrates grasp bilateral upper extremities albeit weak. She is able to move her lower extremities. Results & Data ([facility]) Vital Signs (Past 12 Hours) Vital Signs Temp Pulse Pulse Resp BP BP Pulse Ox 08/09/19 07:42 35.9 C L 77 18 143/90 H 97 08/09/19 07:21 81 18 98 08/09/19 07:06 80 18 98 08/09/19 04:52 146/88 H 08/09/19 04:09 36.4 C L 85 19 179/92 H 98 08/09/19 03:00 82 16 97 08/09/19 01:41 91 H 08/08/19 23:41 36.3 C L 90 17 131/81 98 08/08/19 23:05 87 16 97 08/08/19 22:35 91 H 122/73 96
[2019-08-09] MEDS: cephALEXin 500 MG CAP PO SCH ×3 (11:18→20:24)
[2019-08-09] MEDS: dexAMETHasone 4 MG TAB PO SCH ×3 (11:19→20:26)
[2019-08-09] MEDS ORDERED: bisacodyL 10 MG SUPP PR PRN (14:44)
[2019-08-09] MEDS ORDERED: cloNIDine HCL 0.1 MG TAB PO PRN (17:24)
--- NOTE | 2019-08-09 17:24 | Hospitalist Progress Note ---
Date of Service August 09, 2019 Assessment & Plan (1) Fall: Ambulatory Dysfunction Present on admission after sustaining a fall CT head showed no acute intracranial abnormality CT cervical showed no fractures within the cervical spine. Generalized degenerative change. MRI head showed no acute intracranial abnormality Continue PT/OT Fall precaution Myelopathy concurrent with and due to spinal stenosis of cervical region: Fracture of cervical spine with cord lesion: Decrease motor deficit to grasp hand B/L Pt said that she was using a cane before the fall. Denies any chest pain, palpitation and SOB Cervical MRI showed findings suggest a hyperextension injury pattern with disruption of the anterior longitudinal ligament at C5-6 and both prevertebral and nuchal ligament/interspinous ligament edema. In retrospect a nondisplaced fracture of the spinous process of C5 is present. concerning for spinal cord edema, which could be due to acute on chronic spinal cord impingement at C5 and C6 versus, less likely, traumatic spinal cord injury. Orthopedic on board recommended cervical spine stabilization S/P day#2 anterior cervical corpectomy C5. #2 anterior cervical arthrodesis C4- C6. #3 placement of peek cage 19 mm in height between C4 and C6. #4 placement locally harvested morselized autograft combined with DBM and interbody cage. #5 application of kapoor plate and screws across the 4 to C6 performed by Dr. Guajardo today Maintain strict cervical collar immobilization. If we need to get a CT head to evaluate pt confusion, ok from ortho Continue on clear liquid diet for now Ok from ortho to remove the collar to eat or drink only IV Decadron changed to PO due to limited IV access PT/OT as per ortho HELIO drain plan to remove today Will resume aspirin possible tomorrow Confused Abnormal involuntary jerking movement Possible related to anesthesia Case discuss with Ortho and ok from ortho if we need to get a CT If symptoms worsening or continue, will get a CT head Clinically improves significantly Hypertension BP elevated possible due to the hospital setting Continue Amlodipine 5mg Will add clonidine 0.1 prn since pt has no IV access Continue monitor BP History of coronary artery disease status post coronary artery bypass graft Will resume aspirin in amd Continue statin Asymptomatic Stable Hyperlipidemia Continue Statin Hypokalemia Possible due to poor oral intake K 4.9 today Continue monitor K Hypophosphatemia Admission serum phosphorous 2.8 Stable Acute Kidney Injury on Chronic Kidney Disease Stage IV Creatinine on admission 1.4 Continue Gentle IVF Creatinine stable Urinary tract infection Urine cx positive for Klebsiella PNA IV ceftriaxone transition to Keflex BID Deep vein thrombosis prophylaxis on SCD (Anticipate surgery) Full Code Disposition Plan to transfer med/surg daughter Aleah ([phone]) Admission and Anticipated Discharge Date Admission Date: August 05, 2019 Subjective Pt was seen and seen and examined Lying in bed with no distress Pt is more awake today and follow commands She has been refused to take her oral med Unsuccessful attempted to place IV site by IV team, they will try again later Pt denies any chest pain, palpitation, dizziness and SOB Physical Exam Physical Exam: General- No acute distress Head- atraumatic Eyes- PERRL, EOMI, ENT- decrease hearing function Neck- supple, no JVD Lungs- clear to auscultation Heart- regular rhythm; +murmur Abdomen- normal bowel sounds, soft, nontender Extremities- no calf tenderness, decrease grasp bilateral hands Neuro- awake, PERRL, EOMI; no facial palsy; confused, involuntary jerking movement in upper extremities Skin- warm & dry Results & Data Results & Data ([facility]) Vital Signs (Past 12 Hours) Vital Signs Temp Pulse Pulse Resp BP BP Pulse Ox 08/09/19 16:06 36.7 C 98 H 22 179/98 H 98 08/09/19 15:25 82 18 98 08/09/19 11:13 87 18 98 08/09/19 11:00 35.9 C L 87 18 125/84 98 08/09/19 08:00 77 08/09/19 07:42 35.9 C L 77 18 143/90 H 97 08/09/19 07:21 81 18 98 08/09/19 07:06 80 18 98
[2019-08-09] MEDS: DOCUSATE SODIUM/SENNA 50/8.6MG TAB PO SCH (21:39)
[2019-08-10] MEDS: HydrALAZINE HCL 20 MG/ML VIAL IV PRN (00:48)
[2019-08-10] MEDS: POLYETHYLENE (MIRALAX) 17 GM PACK PO SCH ×3 (04:59→17:01)
[2019-08-10] MEDS: dexAMETHasone 4 MG TAB PO SCH ×3 (04:59→20:45)
[2019-08-10] MEDS: AMLODIPINE BESYLATE 5 MG TAB PO SCH (07:41)
[2019-08-10] MEDS: METOPROLOL TARTRATE 25 MG TAB PO SCH ×2 (07:41→20:46)
[2019-08-10] MEDS: cephALEXin 500 MG CAP PO SCH ×2 (09:19→20:45)
--- NOTE | 2019-08-10 11:50 | Orthopedic Progress Note ---
Date of Service August 10, 2019 Assessment & Plan (1) Fracture of cervical spine with cord lesion: At this time we will maintain a cervical collar at all times. Continue with a soft diet. Continue with OT PT as tolerated. Present on Admission?: Yes Admission and Anticipated Discharge Date Admission Date: August 05, 2019 Subjective Patient is responsive to my questions. Does not appear to be in acute distress or complaint of neck pain. Physical Exam Physical Exam: On exam she is oriented to place. She does not know who I am. She does follow commands. She exhibits significant deficits bilateral grasp however the left is stronger than the right. This is consistent. Results & Data ([facility]) Vital Signs (Past 12 Hours) Vital Signs Temp Pulse Pulse Resp BP Pulse Ox 08/10/19 11:03 64 18 98 08/10/19 11:01 35.7 C L 56 L 18 124/80 98 08/10/19 07:45 67 08/10/19 07:18 64 16 98 08/10/19 07:00 36.6 C 68 18 156/90 H 99 08/10/19 04:28 36.2 C L 67 22 148/82 H 98 08/10/19 03:14 59 L 16 98
--- NOTE | 2019-08-10 15:31 | Hospitalist Progress Note ---
Date of Service August 10, 2019 Assessment & Plan (1) Fall: Ambulatory Dysfunction Present on admission after sustaining a fall CT head showed no acute intracranial abnormality CT cervical showed no fractures within the cervical spine. Generalized degenerative change. MRI head showed no acute intracranial abnormality Continue PT/OT Fall precaution Myelopathy concurrent with and due to spinal stenosis of cervical region: Fracture of cervical spine with cord lesion: Decrease motor deficit to grasp hand B/L Pt said that she was using a cane before the fall. Denies any chest pain, palpitation and SOB Cervical MRI showed findings suggest a hyperextension injury pattern with disruption of the anterior longitudinal ligament at C5-6 and both prevertebral and nuchal ligament/interspinous ligament edema. In retrospect a nondisplaced fracture of the spinous process of C5 is present. concerning for spinal cord edema, which could be due to acute on chronic spinal cord impingement at C5 and C6 versus, less likely, traumatic spinal cord injury. Orthopedic on board recommended cervical spine stabilization S/P day#3 anterior cervical corpectomy C5. #2 anterior cervical arthrodesis C4- C6. #3 placement of peek cage 19 mm in height between C4 and C6. #4 placement locally harvested morselized autograft combined with DBM and interbody cage. #5 application of kapoor plate and screws across the 4 to C6 performed by Dr. Guajardo today Maintain strict cervical collar immobilization. If we need to get a CT head to evaluate pt confusion, ok from ortho Ok from ortho to remove the collar to eat or drink only Continue Decadron PO PT/OT as per ortho HELIO drained removed Aspirin resumed Diet advanced to full liquid Confused Abnormal involuntary jerking movement Possible related to anesthesia Case discuss with Ortho and ok from ortho if we need to get a CT If symptoms worsening or continue, will get a CT head Clinically improves significantly Hypertension BP improved Continue Amlodipine 5mg On clonidine 0.1 prn Continue monitor BP History of coronary artery disease status post coronary artery bypass graft Will resume aspirin in amd Continue statin Asymptomatic Stable Hyperlipidemia Continue Statin Hypokalemia Possible due to poor oral intake K 4.9 today Continue monitor K Hypophosphatemia Admission serum phosphorous 2.8 Stable Acute Kidney Injury on Chronic Kidney Disease Stage IV Creatinine on admission 1.4 Continue Gentle IVF Creatinine stable Urinary tract infection Urine cx positive for Klebsiella PNA IV ceftriaxone transition to Keflex BID Deep vein thrombosis prophylaxis on SCD (Anticipate surgery) Full Code Disposition Plan to transfer med/surg Daughter Aleah ([phone]) Admission and Anticipated Discharge Date Admission Date: August 05, 2019 Subjective Pt was seen and examined Lying in bed with no distress Seems to be comfortable Updates provided to her daughter Physical Exam Physical Exam: General- No acute distress Head- atraumatic Eyes- PERRL, EOMI, ENT- decrease hearing function Neck- supple, no JVD Lungs- clear to auscultation Heart- regular rhythm; +murmur Abdomen- normal bowel sounds, soft, nontender Extremities- no calf tenderness, decrease grasp bilateral hands Neuro- awake, PERRL, EOMI; no facial palsy; confused, involuntary jerking movement in upper extremities Skin- warm & dry Results & Data Results & Data ([facility]) Vital Signs (Past 12 Hours) Vital Signs Temp Pulse Pulse Resp BP Pulse Ox 08/10/19 15:16 55 L 18 98 08/10/19 15:00 61 08/10/19 11:03 64 18 98 08/10/19 11:01 35.7 C L 56 L 18 124/80 98 08/10/19 07:45 67 08/10/19 07:18 64 16 98 08/10/19 07:00 36.6 C 68 18 156/90 H 99 08/10/19 04:28 36.2 C L 67 22 148/82 H 98
[2019-08-10] MEDS: DOCUSATE SODIUM/SENNA 50/8.6MG TAB PO SCH (20:45)
[2019-08-10] MEDS ORDERED: D5W AND NSS 1,000 ML IV ONE (22:10)
[2019-08-10] MEDS ORDERED: SODIUM CHLORIDE 0.9% 1000ML 1,000 ML IV ONE (22:31)
[2019-08-11] MEDS: POLYETHYLENE (MIRALAX) 17 GM PACK PO SCH ×4 (00:04→18:23)
[2019-08-11] MEDS: dexAMETHasone 4 MG TAB PO SCH ×3 (05:32→20:56)
[2019-08-11 06:37] LABS: Hematocrit (blood only) 28.4 % (37-47); Hemoglobin 9.4 g/dL (12.0-16.0); Mean Corpuscular Hemoglobin 28.5 pg (25-34); Mean Corpuscular Hgb Conc 33.1 g/dL (32-36); Mean Corpuscular Volume 86.1 fL (80-100); Mean Platelet Volume 11.3 fL (7.4-10.4); Nucleated RBC # (auto) 0.06 K/uL (0-0); Nucleated RBC % (auto) 1.1 %; Platelet Count 119 K/uL (130-400); RDW Coefficient of Variation 17.8 % (11.5-14.5); RDW Standard Deviation 55.3 fL (36.4-46.3)
[2019-08-11 07:16] LABS: BUN Creatinine Ratio 46.6 (10-20); Calcium 8.9 mg/dl (8.5-10.1); Creatinine Clr Calc Pharmacy 32.4 ml/min; Est GFR (African American) 52.2; Est GFR (Non-African American) 45.1; Potassium 4.5 mmol/L (3.5-5.1)
[2019-08-11] MEDS: ASPIRIN 81 MG ECTAB PO SCH (09:05)
[2019-08-11] MEDS: ATORVASTATIN 40 MG TAB PO SCH (09:05)
[2019-08-11] MEDS: METOPROLOL TARTRATE 25 MG TAB PO SCH ×2 (09:06→20:55)
[2019-08-11] MEDS: AMLODIPINE BESYLATE 5 MG TAB PO SCH (09:06)
[2019-08-11] MEDS: cephALEXin 500 MG CAP PO SCH ×2 (09:06→20:55)
--- NOTE | 2019-08-11 09:58 | Orthopedic Progress Note ---
Date of Service August 11, 2019 Assessment & Plan (1) Myelopathy concurrent with and due to spinal stenosis of cervical region: This time we will continue occupational therapy physical therapy as tolerated. Present on Admission?: Yes Admission and Anticipated Discharge Date Admission Date: August 05, 2019 Subjective Patient is arousable but does not follow commands this morning Physical Exam Physical Exam: On exam she has a collar in place. Dressing is clean and dry. Again she is allowed arousable but will not follow my commands this morning. Results & Data ([facility]) Vital Signs (Past 12 Hours) Vital Signs Temp Pulse Resp BP Pulse Ox 08/11/19 07:55 71 18 98 08/11/19 07:27 36.2 C L 69 16 164/80 H 98 08/11/19 03:29 36.4 C L 66 16 165/78 H 97 08/11/19 03:15 65 16 96 08/10/19 23:21 35.4 C L 64 17 150/84 H 98 08/10/19 23:10 63 16 98
--- NOTE | 2019-08-11 19:08 | Hospitalist Progress Note ---
Date of Service August 11, 2019 Assessment & Plan (1) Fall: Ambulatory Dysfunction Present on admission after sustaining a fall CT head showed no acute intracranial abnormality CT cervical showed no fractures within the cervical spine. Generalized degenerative change. MRI head showed no acute intracranial abnormality Continue PT/OT Fall precaution Myelopathy concurrent with and due to spinal stenosis of cervical region: Fracture of cervical spine with cord lesion: Decrease motor deficit to grasp hand B/L Pt said that she was using a cane before the fall. Denies any chest pain, palpitation and SOB Cervical MRI showed findings suggest a hyperextension injury pattern with disruption of the anterior longitudinal ligament at C5-6 and both prevertebral and nuchal ligament/interspinous ligament edema. In retrospect a nondisplaced fracture of the spinous process of C5 is present. concerning for spinal cord edema, which could be due to acute on chronic spinal cord impingement at C5 and C6 versus, less likely, traumatic spinal cord injury. Orthopedic on board recommended cervical spine stabilization S/P day#4 anterior cervical corpectomy C5. #2 anterior cervical arthrodesis C4- C6. #3 placement of peek cage 19 mm in height between C4 and C6. #4 placement locally harvested morselized autograft combined with DBM and interbody cage. #5 application of kapoor plate and screws across the 4 to C6 performed by Dr. Guajardo today Maintain strict cervical collar immobilization. If we need to get a CT head to evaluate pt confusion, ok from ortho Ok from ortho to remove the collar to eat or drink only Continue Decadron PO PT/OT as per ortho HELIO drained removed Aspirin resumed Continue full liquid diet for now Confused Abnormal involuntary jerking movement Possible related to anesthesia Case discuss with Ortho and ok from ortho if we need to get a CT If symptoms worsening or continue, will get a CT head Clinically improves significantly Hypertension BP improved Continue Amlodipine 5mg On clonidine 0.1 prn Continue monitor BP History of coronary artery disease status post coronary artery bypass graft Will resume aspirin in amd Continue statin Asymptomatic Stable Hyperlipidemia Continue Statin Hypokalemia Possible due to poor oral intake K 4.5 today Continue monitor K Hypophosphatemia Admission serum phosphorous 2.8 Stable Acute Kidney Injury on Chronic Kidney Disease Stage IV Creatinine on admission 1.4 Continue Gentle IVF Creatinine stable Urinary tract infection Urine cx positive for Klebsiella PNA IV ceftriaxone transition to Keflex BID Deep vein thrombosis prophylaxis on SCD (Anticipate surgery) Full Code Disposition Plan to transfer [facility]/surg Daughter Aleah ([phone]) Admission and Anticipated Discharge Date Admission Date: August 05, 2019 Subjective Pt was seen and examined Lying in bed with no distress Continue to have decrease strength to form a tour escort Physical Exam Physical Exam: General- No acute distress Head- atraumatic Eyes- PERRL, EOMI, ENT- decrease hearing function Neck- supple, no JVD Lungs- clear to auscultation Heart- regular rhythm; +murmur Abdomen- normal bowel sounds, soft, nontender Extremities- no calf tenderness, decrease grasp bilateral hands Neuro- awake, PERRL, EOMI; no facial palsy; confused, involuntary jerking movement in upper extremities Skin- warm & dry Results & Data Results & Data ([facility]) Vital Signs (Past 12 Hours) Vital Signs Temp Pulse Resp BP Pulse Ox 08/11/19 15:41 70 18 97 08/11/19 15:23 36.3 C L 69 16 159/72 H 97 08/11/19 11:32 60 14 96 08/11/19 11:25 61 16 131/77 96 08/11/19 07:55 71 18 98 08/11/19 07:27 36.2 C L 69 16 164/80 H 98
[2019-08-11] MEDS: DOCUSATE SODIUM/SENNA 50/8.6MG TAB PO SCH (20:57)
[2019-08-12] MEDS: POLYETHYLENE (MIRALAX) 17 GM PACK PO SCH (02:16)
[2019-08-12] MEDS: dexAMETHasone 4 MG TAB PO SCH ×3 (06:12→21:21)
[2019-08-12] MEDS: AMLODIPINE BESYLATE 5 MG TAB PO SCH (08:22)
[2019-08-12] MEDS: METOPROLOL TARTRATE 25 MG TAB PO SCH ×2 (08:22→20:24)
[2019-08-12] MEDS: ATORVASTATIN 40 MG TAB PO SCH (08:22)
[2019-08-12] MEDS: cephALEXin 500 MG CAP PO SCH ×2 (08:23→20:24)
[2019-08-12] MEDS: ASPIRIN 81 MG ECTAB PO SCH (08:23)
--- NOTE | 2019-08-12 08:33 | Orthopedic Progress Note ---
Date of Service August 12, 2019 Assessment & Plan (1) Myelopathy concurrent with and due to spinal stenosis of cervical region: At this time we will continue occupational physical therapy as tolerated. Present on Admission?: Yes Admission and Anticipated Discharge Date Admission Date: August 05, 2019 Subjective Patient is much more alert this morning. She denies any pain. Denies any numbness and tingling. Physical Exam Physical Exam: On exam she exhibits biceps and deltoids to be intact. Weak grasp bilaterally. She has plantar flexion dorsiflexion to lower extremities intact. Collar is in place. Results & Data ([facility]) Vital Signs (Past 12 Hours) Vital Signs Temp Pulse Pulse Resp BP Pulse Ox 08/12/19 07:18 36.9 C 82 16 166/82 H 97 08/12/19 07:12 70 16 98 08/12/19 05:01 36.5 C 66 18 172/83 H 98 08/12/19 03:25 62 16 96 08/11/19 23:11 64 16 98 08/11/19 22:55 36.3 C L 63 16 168/78 H 97 08/11/19 20:53 65 175/53 H
--- NOTE | 2019-08-12 20:18 | Hospitalist Progress Note ---
Date of Service August 12, 2019 Assessment & Plan (1) Fall: Ambulatory Dysfunction Present on admission after sustaining a fall CT head showed no acute intracranial abnormality CT cervical showed no fractures within the cervical spine. Generalized degenerative change. MRI head showed no acute intracranial abnormality Continue PT/OT Fall precaution Myelopathy concurrent with and due to spinal stenosis of cervical region: Fracture of cervical spine with cord lesion: Decrease motor deficit to grasp hand B/L Pt said that she was using a cane before the fall. Denies any chest pain, palpitation and SOB Cervical MRI showed findings suggest a hyperextension injury pattern with disruption of the anterior longitudinal ligament at C5-6 and both prevertebral and nuchal ligament/interspinous ligament edema. In retrospect a nondisplaced fracture of the spinous process of C5 is present. concerning for spinal cord edema, which could be due to acute on chronic spinal cord impingement at C5 and C6 versus, less likely, traumatic spinal cord injury. Orthopedic on board recommended cervical spine stabilization S/P day#5 anterior cervical corpectomy C5. #2 anterior cervical arthrodesis C4- C6. #3 placement of peek cage 19 mm in height between C4 and C6. #4 placement locally harvested morselized autograft combined with DBM and interbody cage. #5 application of kapoor plate and screws across the 4 to C6 performed by Dr. Guajardo today Maintain strict cervical collar immobilization. If we need to get a CT head to evaluate pt confusion, ok from ortho Ok from ortho to remove the collar to eat or drink only Continue Decadron PO PT/OT as per ortho HELIO drained removed Aspirin resumed Will advance diet to soft Confused Abnormal involuntary jerking movement Possible related to anesthesia Case discuss with Ortho and ok from ortho if we need to get a CT If symptoms worsening or continue, will get a CT head Clinically improves significantly Hypertension BP improved Continue Amlodipine 5mg On clonidine 0.1 prn Continue monitor BP History of coronary artery disease status post coronary artery bypass graft Continue statin and aspirin Asymptomatic Stable Hyperlipidemia Continue Statin Hypokalemia Possible due to poor oral intake K 4.5 Continue monitor K Hypophosphatemia Admission serum phosphorous 2.8 Stable Acute Kidney Injury on Chronic Kidney Disease Stage IV Creatinine on admission 1.4 Continue Gentle IVF Creatinine stable Urinary tract infection Urine cx positive for Klebsiella PNA IV ceftriaxone transition to Keflex BID Deep vein thrombosis prophylaxis on SCD (Anticipate surgery) Full Code Disposition Plan to transfer med/surg Daughter Aleah ([phone]) Admission and Anticipated Discharge Date Admission Date: August 05, 2019 Subjective Pt was seen and examined Lying in bed with no distress Pt looks much better today Denies any chest pain, palpitation, dizziness and SOB Physical Exam Physical Exam: General- No acute distress Head- atraumatic Eyes- PERRL, EOMI, ENT- decrease hearing function Neck- supple, no JVD Lungs- clear to auscultation Heart- regular rhythm; +murmur Abdomen- normal bowel sounds, soft, nontender Extremities- no calf tenderness, decrease grasp bilateral hands Neuro- awake, PERRL, EOMI; no facial palsy; confused, involuntary jerking movement in upper extremities Skin- warm & dry Results & Data Results & Data ([facility]) Vital Signs (Past 12 Hours) Vital Signs Temp Pulse Pulse Resp BP Pulse Ox 08/12/19 19:16 70 16 96 08/12/19 15:33 70 18 96 08/12/19 15:27 36.8 C 62 16 156/77 H 97 08/12/19 11:14 37.0 C 71 18 166/89 H 99 08/12/19 11:12 64 18 98
[2019-08-12] MEDS: DOCUSATE SODIUM/SENNA 50/8.6MG TAB PO SCH (20:24)
[2019-08-12] MEDS ORDERED: SODIUM CHLORIDE 0.9% 1000ML 1,000 ML IV ONE (21:16)
[2019-08-13] MEDS: dexAMETHasone 4 MG TAB PO SCH ×2 (05:36→20:42)
[2019-08-13] MEDS: cephALEXin 500 MG CAP PO SCH ×2 (08:48→20:42)
[2019-08-13] MEDS: METOPROLOL TARTRATE 25 MG TAB PO SCH ×2 (08:48→20:43)
[2019-08-13] MEDS: ATORVASTATIN 40 MG TAB PO SCH (08:48)
[2019-08-13] MEDS: ASPIRIN 81 MG ECTAB PO SCH (08:48)
[2019-08-13] MEDS: AMLODIPINE BESYLATE 5 MG TAB PO SCH (08:48)
--- NOTE | 2019-08-13 11:06 | Orthopedic Progress Note ---
Date of Service August 13, 2019 Assessment & Plan (1) Fracture of cervical spine with cord lesion: At this time we will remove her cervical dressing. She will continue with physical therapy occupational therapy as tolerated. Present on Admission?: Yes Admission and Anticipated Discharge Date Admission Date: August 05, 2019 Subjective Patient is alert and follows commands today. Physical Exam Physical Exam: Patient does not appear to be in acute distress. She is following commands. She still has weak grasp bilaterally. She can plantar flexion dorsiflexion. She was able to stand with with the assistance of physical therapist today. Results & Data ([facility]) Vital Signs (Past 12 Hours) Vital Signs Temp Pulse Pulse Resp BP Pulse Ox 08/13/19 10:59 64 18 96 08/13/19 07:15 36.3 C L 55 L 18 174/80 H 97 08/13/19 04:10 36.8 C 59 L 16 170/64 H 98 08/13/19 03:48 56 L 16 97 08/12/19 23:39 162/73 H 08/12/19 23:11 36.4 C L 65 16 171/75 H 97 08/12/19 23:05 73 14 97
--- NOTE | 2019-08-13 12:22 | Hospitalist Progress Note ---
Date of Service August 13, 2019 Assessment & Plan (1) Fall: Ambulatory Dysfunction Present on admission after sustaining a fall CT head showed no acute intracranial abnormality CT cervical showed no fractures within the cervical spine. Generalized degenerative change. MRI head showed no acute intracranial abnormality Continue PT/OT Fall precaution Myelopathy concurrent with and due to spinal stenosis of cervical region: Fracture of cervical spine with cord lesion: Decrease motor deficit to grasp hand B/L Pt said that she was using a cane before the fall. Denies any chest pain, palpitation and SOB Cervical MRI showed findings suggest a hyperextension injury pattern with disruption of the anterior longitudinal ligament at C5-6 and both prevertebral and nuchal ligament/interspinous ligament edema. In retrospect a nondisplaced fracture of the spinous process of C5 is present. concerning for spinal cord edema, which could be due to acute on chronic spinal cord impingement at C5 and C6 versus, less likely, traumatic spinal cord injury. Orthopedic on board recommended cervical spine stabilization S/P day#6 of cervical spinal surgery : anterior cervical corpectomy C5- performed by Dr. Guajardo Aspirin resumed Hypertension BP elevated increased Amlodipine 10 mg On clonidine 0.1 prn History of coronary artery disease status post coronary artery bypass graft Continue statin and aspirin Asymptomatic Stable Hyperlipidemia Continue Statin Acute Kidney Injury on Chronic Kidney Disease Stage IV Creatinine on admission 1.4--given IVF Creatinine improved 1.1 D/c IVF Urinary tract infection Urine cx positive for Klebsiella IV ceftriaxone transition to Keflex BID Deep vein thrombosis prophylaxis on SCD Full Code Disposition : pt will need rehab COVID 19 PCR -NEGATIVE Daughter Aleah ([phone]) Admission and Anticipated Discharge Date Admission Date: August 05, 2019 Subjective Patient is alert and follows commands today. offers no complain Physical Exam Constitutional: WD/WN, vitals as above no acute distress Neck: s/p cervical spinal surgery neck collar pressent Respiratory: normal respiratory effort, lungs clear to auscultation Cardiovascular: RRR, no murmur, no edema Gastrointestinal (Abdomen): normal bowel sounds, soft, nontender, no hepatosplenomegaly Musculoskeletal: no cyanosis or clubbing, extremities motor strength 5/5 Skin: no rashes, warm and dry Neurologic: PERRL, EOMI, accommodation nl, no face palsy, no dysarthria Psychiatric: A+Ox3, euthymic affect Results & Data Results & Data ([place]) Vital Signs (Past 12 Hours) Vital Signs Temp Pulse Pulse Resp BP Pulse Ox 08/13/19 10:59 64 18 96 08/13/19 07:15 36.3 C L 55 L 18 174/80 H 97 08/13/19 04:10 36.8 C 59 L 16 170/64 H 98 08/13/19 03:48 56 L 16 97
[2019-08-13] MEDS ORDERED: AMLODIPINE BESYLATE 5 MG TAB PO ONE (12:30)
--- NOTE | 2019-08-13 13:47 | XRay Report ---
XR cervical spine 2 or 3V HISTORY: 79 years-old Female postop follow-up study in a patient with prior cervical spine fusion COMPARISON: Cervical spine fluoroscopic images 08/07/2019, MRI cervical spine 08/05/2019 TECHNIQUE: 2 views of the cervical spine FINDINGS: Anterior plate and screw fusion at C4-C6 with apparent C5 corpectomy changes. Alignment appears [employer] and the hardware appears to be intact. Severe disc space narrowing at C6-C7. Severe multileve l facet arthrosis with moderate spondylitic spurring. Demineralized appearance of the bones. No acute fracture or subluxation identified. Prior median sternotomy. Calcified plaque of the thoracic aortic arch. Surgical clips project over the left mediastinal distribution. IMPRESSION: 1. No acute fracture or subluxation. 2. Anterior plate and screw fusion hardware at C4-C6 with apparent corpectomy changes at C5. Alignmen t appears satisfactory. ACT 112: Negative or not required by law. The above report was generated using voice recognition software. It may contain grammatical, syntax o r spelling errors. Electronically signed by: João Mendoza M.D. 08/13/2019 1:45 PM
[2019-08-13] MEDS: DOCUSATE SODIUM/SENNA 50/8.6MG TAB PO SCH (20:42)
[2019-08-14] MEDS: cephALEXin 500 MG CAP PO SCH (08:31)
[2019-08-14] MEDS: ATORVASTATIN 40 MG TAB PO SCH (08:35)
[2019-08-14] MEDS: dexAMETHasone 4 MG TAB PO SCH (08:42)
[2019-08-14] MEDS: METOPROLOL TARTRATE 25 MG TAB PO SCH (08:47)
[2019-08-14] MEDS ORDERED: dexAMETHasone 4 MG TAB PO SCH (09:00)
[2019-08-14] MEDS ORDERED: ASPIRIN 81 MG CHEW PO SCH (09:00)
[2019-08-14] MEDS ORDERED: AMLODIPINE BESYLATE 5 MG TAB PO SCH (09:00)
--- NOTE | 2019-08-14 16:40 | Discharge Summary ---
Date of Service August 14, 2019 Admission HPI Per Admitting Provider DICTATED BY: Mele Lott MD DATE OF ADMISSION: 08/04/2019 CHIEF COMPLAINT: Fall. HISTORY OF PRESENT ILLNESS: This is an 79-year-old female with past medical history significant for hyperlipidemia, hypertension, history of mitral regurgitation, CAD status post CABG, history of diverticulitis of colon, GERD, vitamin D deficiency, chronic kidney disease stage IV, history of TIAs, who lives alone, walks with a cane was brought in because of fall. The patient lives alone but daughter lives close by. The patient was taken to [facility] yesterday because the patient was not getting up from the bed for the last 4 days, not eating and drinking much, feeling weak, somewhat confused. As per daughter, the potassium was 3 and she was in ER for 3 hours and got discharged. Today, the patient says when she was trying to get up from the bed and going to the dining room, she slipped on the carpet and fell face down. She then passed out. Then she was able to call her daughter and she was brought in here. She was having Bruise to Left orbit and injury of the bridge of the nose, which was sutured in the ER. Currently alert and awake, oriented to name and place, does not know the dates. Denies any headache. Denies any blurred visions, no earache. Denies any sore throat. Denies cough. No fever, no chills. No chest pain, no shortness of breath. Denies any nausea, no vomiting, no abdominal pain. Denies any diarrhea or constipation. Normal bowel and bladder movements. No rash anywhere. Hemodynamics are stable. Principal Diagnosis FALL /AMBULATORY DYSFUNCTION /CERVICAL SPINE INJURY /POST CERVICAL SPINE SURGERY Discharge Exam Constitutional WD/WN, vitals as above no acute distress Respiratory normal respiratory effort, lungs clear to auscultation Cardiovascular RRR, no murmur, no edema Gastrointestinal (Abdomen) normal bowel sounds, soft, nontender, no hepatosplenomegaly Musculoskeletal no cyanosis or clubbing, extremities motor strength 5/5 Skin no rashes, warm and dry Neurologic PERRL, EOMI, accommodation nl, no face palsy, no dysarthria Psychiatric A+Ox3, euthymic affect Discharge Data Allergies Allergy/AdvReac Type Severity Reaction Status Date / Time No Known Allergies Allergy Unknown Verified 08/04/19 20:09 Consultations 08/04/19 19:38 ED Decision to Admit Stat 08/04/19 22:57 Consult Case Management - Discharge Planning Routine 08/05/19 10:06 Consult Neurology Routine 08/05/19 10:07 Consult Orthopedic Surgery Routine Procedures Performed Operation Date: 08/07/19 12:20 Actual Procedures p C5 Anterior Cervical Corpectomy, Spinal Cord Monitoring(Not Applicable) - Jamal Guajardo, Ordered Studies 08/04/19 17:25 CT abd pelvis wo con Stat CT cervical spine wo con Stat CT chest wo con Stat CT head/brain wo con Stat 08/05/19 10:46 MR brain wo/w con Stat MR cervical spine wo/w con Stat 08/07/19 12:20 FL cervical 2-3V Routine FL fluoroscopy <1hr Routine Hospital Course (1) Fall: Ambulatory Dysfunction Present on admission after sustaining a fall CT head showed no acute intracranial abnormality CT cervical showed no fractures within the cervical spine. Generalized degenerative change. MRI head showed no acute intracranial abnormality Myelopathy concurrent with and due to spinal stenosis of cervical region: Fracture of cervical spine with cord lesion: Decrease motor deficit to grasp hand B/L Pt said that she was using a cane before the fall. Denies any chest pain, palpitation and SOB Cervical MRI showed findings suggest a hyperextension injury pattern with disruption of the anterior longitudinal ligament at C5-6 and both prevertebral and nuchal ligament/interspinous ligament edema. In retrospect a nondisplaced fracture of the spinous process of C5 is present. concerning for spinal cord edema, which could be due to acute on chronic spinal cord impingement at C5 and C6 versus, less likely, traumatic spinal cord injury. Orthopedic on board recommended cervical spine stabilization S/P day#7 of cervical spinal surgery : anterior cervical corpectomy C5- performed by Dr. Guajardo Aspirin resumed stable to discharged to rehab today DYSPHAGIA : appreciate input from speech therapy recommends : Pureed diet , needs to be fed aspiration precaution , pills needs to be crushed and given on carrier : applesauce /pudding will benefit with continued speech therapy at the rehab case management updated speech eval added to discharge instruction which his faxed to [facility] for continued speech therapy /eval Hypertension BP elevated increased Amlodipine 10 mg On clonidine 0.1 prn History of coronary artery disease status post coronary artery bypass graft Continue statin and aspirin Asymptomatic Stable Hyperlipidemia Continue Statin Acute Kidney Injury on Chronic Kidney Disease Stage IV Creatinine on admission 1.4--given IVF Creatinine improved 1.1 D/c IVF Urinary tract infection Urine cx positive for Klebsiella on PO Keflex Deep vein thrombosis prophylaxis on SCD Full Code Disposition : pt will need rehab COVID 19 PCR -NEGATIVE stable to be transferred to rehab [facility] today Total Time Total Time Spent Total Time Spent (In Minutes): approx 35 mins Discharge Plan Discharge Items Patient Disposition: Transfer [facility] Reason For Visit: FALL Discharge Diagnosis: FALL /AMBULATORY DYSFUNCTION /CERVICAL SPINE INJURY /POST CERVICAL SPINE SURGERY Activity: Per Instructions section Non-emergency contact: Primary Care Provider Call non-emergency contact if: you have any medication questions Follow-up/Referrals: Jamal Guajardo DO [Surgeon] - (FOLLOW UP IN 2 WEEKS ) Enrique Mast MD [Primary Care Provider] - Diet: Heart Healthy Diet Texture: Pureed (blended smooth) Addtl Attending Provider Instructions: DIET : PUREED WITH THIN LIQUID STRICT ASPIRATION PRECAUTION WILL NEED SPEECH THERAPY AT THE REHAB FOR DIFFICULTY SWALLOWING /DYSPHAGIA ACTIVITY RECOMMENDATIONS: SELF CARE INSTRUCTIONS AFTER CERVICAL FUSIONS 1. No smoking. Smoking drastically decreases the chance of a solid fusion. 2. No bending, lifting more than 5 pounds, or twisting (roll like a log when turning in bed). 3. You may shower 3 days after surgery. Thoroughly dry wound. Do not soak in the tub. 4. Cervical collar: Must be worn at all times including sleeping. You may remove the brace only to bath, eat and if you are sitting in a recliner. 5. Please walk as much as you can for exercise. Gradually increase the distance that you walk as your endurance increases. SPECIAL CARE INSTRUCTIONS: VERY IMPORTANT TO READ AND REVIEW A. Do not take any anti-inflammatory medications (i.e. Indocin, Advil, Aspirin, Naprosyn, Aleve, Motrin, etc.) as these may inhibit the chance of a solid fusion. Tylenol is okay to take. B. Your surgical incision has been closed with a cosmetic suture under the skin that will dissolve in about 6 weeks. In 14 days, you can use a pair of clean scissors and cut the suture that is left outside of the skin at the ends of your incision. C. Complications are uncommon, but please contact us if you have any signs or symptoms of: 1. wound infection (fever higher than 102.5 degrees F, redness, separation of wound, drainage, or increasing pain from the incision) 2. blood clots in legs (pain, swelling, redness and warmth in legs) 3. urinary tract infection (fever higher than 102.5 degrees, burning upon urination or increased frequency of urination) 4. nerve problems (inability to walk on your toes or heels, numbness, loss of bowel or bladder control) 5. any other symptoms that concern you. D. Please call the office at if you have any concerns or questions about your operation or recovery. MANAGING PAIN AFTER SPINAL SURGERY 1. Narcotic medication is intended for short-term use and will be provided for surgical pain. Surgical pain usually lasts for a period of 4-6 weeks. Narcotic medication includes Percocet, Vicodin, Darvocet, Tylenol #3 or Lortab. 2. Longer-term pain is more appropriately treated with non-narcotic medication such as Tylenol ES. 3. Muscle spasm is not appropriately treated with narcotics. Muscle relaxers such as Soma, Flexeril or Skelaxin can be used along with Tylenol ES. 4. Remember that we all live with some "aches and pains". This is not unusual or uncommon after an injury or as we get older. 5. We will provide appropriate medication within the normal guidelines of their prescribed use. We will also be very cautious and aware of potential abuse and extended duration of patients' medication needs. 6. Please allow 2-3 days to process refills. Prescriptions will not be mailed but must be picked up at the office. FOLLOW UP VISIT: Keep your scheduled follow-up appointment. Any questions, please call the office at . please follow up in two weeks Pending Studies at Discharge: No Stand-Alone Forms: My [facility] Skilled Items Patient informed of condition?: Yes DNR: No Discharge Level of Care: Skilled Communicable Disease: No Discharge Prognosis: Stable Lines: None Urinary Catheter: No Medications and DC Order Prescriptions: New metoprolol tartrate 25 mg Tablet 75 mg PO BID 30 Days Qty: 180 RF: 0 Continued atorvastatin 40 mg tablet 40 mg PO DAILY RF: 0 calcitriol 0.25 mcg capsule 0.25 mcg PO 3XWK RF: 0 aspirin [Aspirin Low Dose] 81 mg Tablet,Delayed Release (Dr/Ec) 81 mg PO DAILY RF: 0 cholecalciferol (vitamin D3) 25 mcg (1,000 unit) Tablet 25 mcg PO DAILY RF: 0 Changed amlodipine 2.5 mg tablet 5 mg PO DAILY Qty: 0 RF: 0 Discharge Orders: Discharge Order (Routine); Ordered 08/14/19 Ordered By: Kaleigh Blanco Admission Data Admit Date/Time: 08/05/19 11:29 Attending Provider: Kaleigh Blanco Admit Provider: Jamal Guajardo Primary Care Provider: Enrique Mast Other Providers: Marcelino Stone ; Mele Lott ; Mikhail Echeverria ; Jamal Guajardo Other Interventions: Discharge Summary Assessment (RN) Last Done: 08/14/19 11:26 DC Date/Time DO NOT enter until pt leaves facility: 08/14/19 14:32
== END 2019-08-14 14:32 | DRG 29 ==
LOC: 2N 16:55 → ED 16:55 → 2N 22:37 → SUATTDRO 08-05 11:29 → 3E 08-07 14:43 → 2S 08-08 00:50 → 3E 08-10 16:03